=== PATIENT | female | born 1955 | race Caucasian/White ===

== ENCOUNTER 2018-04-22 12:22 | Emergency (ER) | payer OTHER, SELFPAY ==
[2018-04-22 12:24] VITALS: BP 162/91; PULSE 79; RESP 12; TEMP 35.7
--- NOTE | 2018-04-22 12:47 | RAD_ITS ---
STUDY: X-RAY - RIGHT HAND REASON FOR EXAM: Female, 62 years old. Pain at the level of the metacarpals following a fall. TECHNIQUE: 3 view(s) of the hand. COMPARISON: None. FINDINGS: Normal radiocarpal articulation. Normal distal radioulnar joint. Normal visualized carpal bones. Normal carpal articulations Normal carpometacarpal articulation of the thumb. Normal second through fifth carpometacarpal joints. Normal metacarpi. Normal metacarpophalangeal joint of the thumb. Normal interphalangeal joint of the thumb. Normal proximal and distal phalanges of the thumb. Normal metacarpophalangeal joints of the second through fifth fingers. Normal proximal and distal interphalangeal joints of the second through fifth fingers. Normal phalanges of the second through fifth fingers. Soft tissue swelling. RAD/Hand Min 3 Views IMPRESSION: Soft tissue swelling. Electronically Signed: Guanako Lopez MD at 13:18 EST Tel [phone], Service support ,
--- NOTE | 2018-04-22 12:47 | RAD_ITS ---
STUDY: X-RAY - LEFT FOOT CLINICAL: Female, 62 years old. Pain involving the great toe following a fall. TECHNIQUE: 3 view(s) of the foot. COMPARISON: None. FINDINGS: Normal talus, calcaneus, and tarsal bones. Normal visualized subtalar, talonavicular, calcaneocuboid, tarsal and tarsometatarsal articulations. Normal metatarsi. Normal metatarsophalangeal joint of the great toe. Normal tibial and fibular sesamoid bones. Normal interphalangeal joint of the great toe. Nondisplaced fracture at the base of the distal phalanx of the great toe. Normal second through fifth metatarsophalangeal joints. Normal interphalangeal joints and phalanges of the lesser toes. There is non-specific soft tissue swelling of the foot. RAD/Foot min 3 Views IMPRESSION: Nondisplaced fracture at the base of the distal phalanx of the great toe with overlying soft tissue swelling. Electronically Signed: Guanako Lopez MD at 13:19 EST Tel [phone], Service support ,
[2018-04-22] MEDS: Acetaminophen 500 MG Tablet 1000 MG PO (12:51)
--- NOTE | 2018-04-22 13:34 | ED.DCSUM_ITS ---
- ER Visit Summary Date of Service: 04/22/18 Chief Complaint: Left first toe pain, right hand pain History of Present Illness: The patient is a 62 F who states that she slipped on some ice and injured the left toe and right hand. This occurred a couple of hours ago. She took nothing for it. The pain is worse with movement of each of these areas. She was able to ambulate afterwards. She has no previous injuries or surgeries to either of these areas. Physical Examination: Vital signs are reviewed. Left foot exam reveals tenderness at the base of the nail of the left great toe. There is bleeding from under the nail but the nail bed is intact. The right hand is tender to pa lpation laterally. There is no swelling or ecchymosis Test Results: Right hand x-ray reveals soft tissue swelling. Left foot x-ray reveals a distal phalanx fracture Emergency Department Course and Treatment: She will be placed in a postop shoe. She only requested Tylenol for pain. She will ice and elevate. She will follow-up with her PCP Treatment Plan: [] Disposition: Discharge Impression: Right hand contusion, left first toe distal phalanx fracture This note was generated with [employer] dictation software. It may contain incorrect words, spelling, and punctuation that were not noted in review of the chart prior to signing ED Disposition - Plan for ED Patient: Chief Complaint: Lower Extremity Injury Referrals: Guero Cain MD [Primary Care Provider] -
--- NOTE | 2018-04-22 13:34 | ED.DEP ---
ED Disposition - Plan for ED Patient: Disposition: Home or Assisted Living Chief Complaint: Lower Extremity Injury Diagnosis: Phalanx fracture, foot Instructions: ED Fx Toe Closed Referrals: Guero Cain MD [Primary Care Provider] -
--- OUTSIDE RECORDS SUMMARY | 2018-07-25 03:55 | XMS RPT_ITS ---
:1955 Author Organization OHIP Care Team Providers Name Role Phone IGOR NÚÑEZ Attending Unavailable IGOR NÚÑEZ Referring Unavailable Francisco Tom Attending Unavailable Francisco Tom Referring Unavailable Dariel Granda Attending Unavailable Guero Cain Primary Care Unavailable PROBLEMS PROBLEMS DATE TYPE CONDITION / CODE ATTENDING STATUS SOURCE 04/05/2018 Active Encounter for Active [place] gynecological [facility] examination [place] (general) (routine) Repository without abnormal findings / Z01.419(ICD-10) 04/05/2018 Active Encounter for [facility] screening mammogram [facility] for malignant [place] neoplasm of breast Repository / Z12.31(ICD-10) 06/01/2017 Admitting Hyperlipidemia, Francisco Tom Active [facility] Diagnosis unspecified / System E78.5(ICD-10) Repository PROCEDURES PROCEDURES No Procedure Records FoundRESULTS RESULTS DISCHARGE INSTRUCTION Observed: 04/22/2018 Status: F Source: [place] 1:40 PM [facility] REPOSITORY [facility] Medical Records Department [address] [place] [address] Discharge Instruction 04/22/18 1334 MR#: [id number] Acct: [id number] Name: ABEL SILVER Rep #: [id number] : 1955 62 From: Dariel Granda MD PCP: Guero Cain MD Status: REG ER ED Disposition - Plan for ED Patient: Disposition: Home or Assisted Living Chief Complaint: Lower Extremity Injury Diagnosis: Phalanx fracture, foot Instructions: ED Fx Toe Closed Referrals: Guero Cain MD [Primary Care Provider] - What to do if you have Problems For any increased pain, shortness of breath, bleeding, nausea or vomiting, chest pain, or any unexpected problems, contact your Primary Care Provider. Call [facility] ([phone]) or report to the closest Emergency Room. Call 911 if necessary. 04/22/18 1340 <Electronically signed by Dariel Granda MD> Date Dariel Granda MD Cosigner Signature (If Indicated): Date CC: Guero Cain MD EMERGENCY DEPARTMENT Observed: 04/22/2018 Status: F Source: [place] SUMMARY 1:34 PM [facility] REPOSITORY [facility] Medical Records Department [address] [place] [address] Emergency Department Summary 04/22/18 1332 MR#: [id number] Acct: [id number] Name: ABEL SILVER Rep #: [id number] : 1955 62 From: Dariel Granda MD PCP: Guero Cain MD Status: REG ER - ER Visit Summary Date of Service: 04/22/18 Chief Complaint: Left first toe pain, right hand pain History of Present Illness: The patient is a 62 F who states that she slipped on some ice and injured the left toe and right hand. This occurred a couple of hours ago. She took nothing for it. The pain is worse with movement of each of these areas. She was able to ambulate afterwards. She has no previous injuries or surgeries to either of these areas. Physical Examination: Vital signs are reviewed. Left foot exam reveals tenderness at the base of the nail of the left great toe. There is bleeding from under the nail but the nail bed is intact. The right hand is tender to palpation laterally. There is no swelling or ecchymosis Test Results: Right hand x-ray reveals soft tissue swelling. Left foot x-ray reveals a distal phalanx fracture Emergency Department Course and Treatment: She will be placed in a postop shoe. She only requested Tylenol for pain. She will ice and elevate. She will follow-up with her PCP Treatment Plan: [] Disposition: Discharge Impression: Right hand contusion, left first toe distal phalanx fracture This note was generated with [employer] software. It may contain incorrect words, spelling, and punctuation that were not noted in review of the chart prior to signing ED Disposition - Plan for ED Patient: Chief Complaint: Lower Extremity Injury Referrals: Guero Cain MD [Primary Care Provider] - What to do if you have Problems For any increased pain, shortness of breath, bleeding, nausea or vomiting, chest pain, or any unexpected problems, contact your Primary Care Provider. Call [facility] ([phone]) or report to the closest Emergency Room. Call 911 if necessary. 04/22/18 1334 <Electronically signed by Dariel Granda MD> Date Dariel Granda MD Cosigner Signature (If Indicated): Date CC: Guero Cain MD HAND MIN 3 VIEWS Observed: 04/22/2018 Status: F Source: [place] 12:48 PM [facility] REPOSITORY [facility] Imaging Services [address] [place] [address] Hand Min 3 Views MR#: [id number] Acct: [id number] Name: ABEL SILVER Anaya Rep #: [id number] : 1955 F 62 From: Guanako Lopez MD PCP: Guero Cain MD Status: REG ER Study: Hand Min 3 Views Date of Exam: 04/22/18 Exam# [id number] Ordering Dr: Dariel Granda MD STUDY: X-RAY - RIGHT HAND REASON FOR EXAM: Female, 62 years old. Pain at the level of the metacarpals following a fall. TECHNIQUE: 3 view(s) of the hand. COMPARISON: None. FINDINGS: Normal radiocarpal articulation. Normal distal radioulnar joint. Normal visualized carpal bones. Normal carpal articulations Normal carpometacarpal articulation of the thumb. Normal second through fifth carpometacarpal joints. Normal metacarpi. Normal metacarpophalangeal joint of the thumb. Normal interphalangeal joint of the thumb. Normal proximal and distal phalanges of the thumb. Normal metacarpophalangeal joints of the second through fifth fingers. Normal proximal and distal interphalangeal joints of the second through fifth fingers. Normal phalanges of the second through fifth fingers. Soft tissue swelling. RAD/Hand Min 3 Views IMPRESSION: Soft tissue swelling. Electronically Signed: Guanako Lopez MD at 13:18 EST Tel [phone], Service support , CC: Guero Cain MD; Dariel Granda MD Dog Bather: Signed FOOT MIN 3 VIEWS Observed: 04/22/2018 Status: F Source: [place] 12:48 PM [facility] REPOSITORY [facility] Imaging Services [address] [place] [address] Foot min 3 Views MR#: [id number] Acct: [id number] Name: MELISSARAMYABEL B Rep #: [id number] : 1955 F 62 From: Guanako Lopez MD PCP: Guero Cain MD Status: REG ER Study: Foot min 3 Views Date of Exam: 04/22/18 Exam# [id number] Ordering Dr: Dariel Granda MD STUDY: X-RAY - LEFT FOOT CLINICAL: Female, 62 years old. Pain involving the great toe following a fall. TECHNIQUE: 3 view(s) of the foot. COMPARISON: None. FINDINGS: Normal talus, calcaneus, and tarsal bones. Normal visualized subtalar, talonavicular, calcaneocuboid, tarsal and tarsometatarsal articulations. Normal metatarsi. Normal metatarsophalangeal joint of the great toe. Normal tibial and fibular sesamoid bones. Normal interphalangeal joint of the great toe. Nondisplaced fracture at the base of the distal phalanx of the great toe. Normal second through fifth metatarsophalangeal joints. Normal interphalangeal joints and phalanges of the lesser toes. There is non-specific soft tissue swelling of the foot. RAD/Foot min 3 Views IMPRESSION: Nondisplaced fracture at the base of the distal phalanx of the great toe with overlying soft tissue swelling. Electronically Signed: Guanako Lopez MD at 13:19 EST Tel [phone], Service support , CC: Guero Cain MD; Dariel Granda MD Dog Bather: Signed CNOV Observed: 04/05/2018 Status: COMPLETED Source: [place] 9:00 AM [facility] REPOSITORY Office Visit (WOOB) JAQUI SILVERIS Anaya ([id number]) 1955 F Date Time Provider Department 04/05/18 9:00 AM IGOR NÚÑEZ During your visit today, we recorded the following information about you: Blood pressure Weight Height 158/92 75.3 kg 1.651 m Igor Núñez MD 04/05/2018 9:20 AM Signed Abel Julien Zoraida is a 62 year old who presents for her annual gynecologic exam without complaints. Postmenopausal: yes HRT use: No. Last Pap: 2014 normal HPV: 2014 negative History of abnormal pap: No Last mammogram: 2018 normal History of abnormal mammogram: No Obstetric History T4 L4 SAB2 TAB0 Ectopic0 Multiple0 Live Births0 PAST MEDICAL HISTORY Diagnosis Date - Generalized anxiety disorder Anxiety, Generalized - Hypertension - Missed - PMH - PAST MEDICAL HISTORY OF increased cholestrol - Rheumatoid arthritis(714.0) PAST SURGICAL HISTORY Procedure Laterality Date - CARPAL TUNNEL both hands - DELIVERY ONLY , low cervical - COLONOSCOP W/ OR W/O [facility] SPEC 05/29/2016 Colonoscopy - DANDC, DIAG AND/OR THERAPEUTIC Dilation AND curettage - LIGATE FALLOPIAN TUBE Tubal ligation - PAST SURGICAL HISTORY OF 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 No bloating, early satiety, indigestion, or increased flatulence. Bladder: No dysuria, gross hematuria, urinary frequency, urinary urgency, or incontinence Breast: No breast lumps, nipple d/c, overlying skin changes, redness or skin retraction Allergies and current medication updated:Yes EXAM: LMP 12/19/2009 GENERAL: pleasant, female in no apparent distress HEENT: Normocephalic, atraumatic, mucus membranes moist and no lesions NECK: Supple, full range of motion, no adenopathy and thyroid normal DERMATOLOGY: Normal, without lesions, non-icteric and non-hirsute BREAST: soft, non-tender, symmetric, no dominant mass, normal nipple-areolar complex, no lymphadenopathy and no nipple discharge CHEST: Normal inspiratory effort ABDOMEN: soft, non-tender and no masses PELVIC: external genitalia normal, normal Bartholin's glands, urethra, [place]'s glands, no vulvar lesions, no cervical lesions, good vaginal support, physiologic discharge present, normal appearing perineal body and perianal region BIMANUAL: uterus normal size, shape and consistency, no adnexal masses and non-tender RECTOVAGINAL: deferred. NEURO: alert and oriented x3,exam grossly non-focal EXTREMITIES: normal ASSESSMENT/PLAN: 1) Health maintenance: Pap/HPV up to date. Mammogram ordered Colon cancer screening: up to date with screening had flu vaccine 2) Follow up one year or sooner as needed MD Bev Danielle Ma 04/05/2018 9:20 AM Signed Would you like a gluing machine adjuster present for your visit today? No Bev Mae Ma Referring Provider: SELF [200] Allergies As of Date: 04/05/2018 Noted Allergy Reaction MORPHINE 05/29/2016 1 - Mental Status Change SULFASALAZINE 02/17/2011 5 - Intolerance Date Reviewed: 04/05/2018 Reviewed by: Igor Núñez - Fully Assessed Primary Visit Diagnosis:Encounter for gynecological examination (general) (routine) without abnormal findings [Z01.419] Other Visit Diagnosis:Encounter for screening mammogram for breast cancer [Z12.31] Order(s):[facility] SCREENING [[id number]] Order #: [id number] FUTURE Prescriptions as of 04/05/2018 Sig: VITAMIN C ORAL Take by mouth. IPRATROPIUM BROMIDE NASAL Use in the nose. ATORVASTATIN 20 MG TABLET Take 20 mg by mouth once naila* HYDROXYZINE HCL 25 MG TABLET Take 25 mg by mouth every 6 h* LORATADINE 10 MG TABLET Take 10 mg by mouth once naila* METHOTREXATE (PF) 20 MG/0.4 M* Inject subcutaneously. LOSARTAN 25 MG TABLET Take 50 mg by mouth once naila* * LEUCOVORIN CALCIUM 5 MG TABLET Take 10 mg by mouth once each* * PREDNISONE 10 MG TABLET Take 10 mg by mouth once naila* * HYDROXYCHLOROQUINE 200 MG TAB* Take 400 mg by mouth once kojo* * CHOLECALCIFEROL (VITAMIN D3) * Take 1,000 Units by mouth onc* * NAPROXEN ORAL Take by mouth as needed. Problem List As Of Date 04/05/2018 Noted Resolved Rheumatoid arthritis [M06.9] INVALID FOR* Disposition: Return in 1 year (on 04/05/2019) for Annual Exam. Follow-up and Disposition History Recorded Encounter Status:Closed by IGOR NÚÑEZ MD on 04/05/18 PROGRESS Observed: 04/05/2018 Status: COMPLETED Source: [place] 8:42 AM [facility] RE[facility]IT[facility] HNO ID: [id number] Author: Bev Mae Ma Service: (none) Author Type: (none) Type: Progress Notes Filed: 04/05/2018 9:20 AM Note Text: Would you like a gluing machine adjuster present for your visit today? No Bev Mae Ma PROGRESS Observed: 04/05/2018 Status: COMPLETED Source: [place] 8:34 AM [facility] REPOSITORY HNO ID: [id number] Author: Igor Núñez Service: (none) Author Type: Physician Type: Progress Notes Filed: 04/05/2018 9:20 AM Note Text: Abel Silver is a 62 year old who presents for her annual gynecologic exam without complaints. Postmenopausal: yes HRT use: No. Last Pap: 2014 normal HPV: 2014 negative History of abnormal pap: No Last mammogram: 2017 normal History of abnormal mammogram: No Obstetric History T4 L4 SAB2 TAB0 Ectopic0 Multiple0 Live Births0 PAST MEDICAL HISTORY Diagnosis Date - Generalized anxiety disorder Anxiety, Generalized - Hypertension - Missed - PMH - PAST MEDICAL HISTORY OF increased cholestrol - Rheumatoid arthritis(714.0) PAST SURGICAL HISTORY Procedure Laterality Date - CARPAL TUNNEL both hands - DELIVERY ONLY , low cervical - COLONOSCOP W/ OR W/O [facility] SPEC 05/29/2016 Colonoscopy - DANDC, DIAG AND/OR THERAPEUTIC Dilation AND curettage - LIGATE FALLOPIAN TUBE Tubal ligation - PAST SURGICAL HISTORY OF 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 No bloating, early satiety, indigestion, or increased flatulence. Bladder: No dysuria, gross hematuria, urinary frequency, urinary urgency, or incontinence Breast: No breast lumps, nipple d/c, overlying skin changes, redness or skin retraction Allergies and current medication updated:Yes EXAM: LMP 12/19/2009 GENERAL: pleasant, female in no apparent distress HEENT: Normocephalic, atraumatic, mucus membranes moist and no lesions NECK: Supple, full range of motion, no adenopathy and thyroid normal DERMATOLOGY: Normal, without lesions, non-icteric and non-hirsute BREAST: soft, non-tender, symmetric, no dominant mass, normal nipple-areolar complex, no lymphadenopathy and no nipple discharge CHEST: Normal inspiratory effort ABDOMEN: soft, non-tender and no masses PELVIC: external genitalia normal, normal Bartholin's glands, urethra, [place]'s glands, no vulvar lesions, no cervical lesions, good vaginal support, physiologic discharge present, normal appearing perineal body and perianal region BIMANUAL: uterus normal size, shape and consistency, no adnexal masses and non-tender RECTOVAGINAL: deferred. NEURO: alert and oriented x3,exam grossly non-focal EXTREMITIES: normal ASSESSMENT/PLAN: 1) Health maintenance: Pap/HPV up to date. Mammogram ordered Colon cancer screening: up to date with screening had flu vaccine 2) Follow up one year or sooner as needed Igor Núñez MD CNCO Observed: 04/05/2018 Status: COMPLETED Source: [place] 8:33 AM [facility] [place] REPOSITORY HNO ID: [id number] Author: Mammography Coordinator Service: (none) Author Type: Physician Type: Letter Filed: 04/08/2018 11:32 PM Note Text: April 05, 2018 PID: [id number] Abel B. Zoraida [address] [place] [address] Dear Ms. Torresramy, We are pleased to inform you that the results of your recent breast imaging exam on 04/05/2018 are normal. Your mammogram demonstrates that you have dense breast tissue, which could hide abnormalities. Dense breast tissue, in and of itself, is a relatively common condition. Therefore, this information is not provided to cause undue concern; rather, it is to raise your awareness and promote discussion with your health care provider regarding the presence of dense breast tissue in addition to other risk factors. Early detection of cancer is very important. We also understand recommendations regarding breast cancer screening are controversial. Please discuss with your primary care provider which strategy is best for you and whether a mammogram is right for you. Your imaging studies and report will be kept on file at [facility] as part of your permanent medical record and are available for your continuing care. Thank you for allowing us to help in meeting your health care needs. Sincerely, Dr. Quezada Interpreting Radiologist [facility] (Normal over 40) [facility] SCREENING Observed: 04/05/2018 Status: F Source: [place] 8:21 AM [facility] REPOSITORY * * *Final Report* * * DATE OF EXAM: Apr 05 2018 8:21AM WOW [id number] - [facility] SCREENING / PROCEDURE REASON: multiple diagnoses * * * * Physician Interpretation * * * * RESULT: #[id number] - [facility] SCREENING BILATERAL DIGITAL SCREENING MAMMOGRAM WITH CAD: 04/05/2018 HISTORY: Multiple Diagnoses /Screening Mammogram - patient reports NO symptoms /priors available for comparison. RESULT: TECHNIQUE: The study was acquired using full field digital technology and interpreted from soft copy. Current study was also evaluated with a Computer Aided Detection (CAD). Comparison is made to exams dated: 04/03/2017 mammogram, 03/27/2016 mammogram, and 03/18/2015 mammogram - [facility]. The tissue of both breasts is heterogeneously dense. This may lower the sensitivity of mammography. No significant masses, calcifications, or other findings are seen in either breast. There has been no significant interval change. IMPRESSION: There is no mammographic evidence of malignancy. A 1 year screening mammogram is recommended. Daniela Quezada M.D., mc/reji:04/05/2018 08:33:50 Lens Cleaner(s): RT Keerthi(Bharathi)(M), [facility] letter sent: Normal over 40 Mammogram BI-RADS: 1 Negative Multiple national specialty organizations have released breast cancer screening guidelines for women at average risk for developing breast cancer - guidelines that are based on both evidence and opinion, yet differ on when to start and how often to screen for breast cancer. With representation from Breast Imaging, Internal Medicine, Women's Health, Family Medicine, and Medical/Surgical Oncology, the [facility] has carefully reviewed the data and reached the following consensus: 1) All women should engage in shared decision-making with their providers to decide when to start and how often to screen; 2) All women should have the opportunity to start screening mammography at age 40; 3) For women ages 45-55, we recommend annual screening mammograms; 4) For women ages 55 and over, we support both the transition from an annual to a biennial interval if this aligns more with patient's values and preferences, or continuation with annual screening; 5) All women should discuss with their providers when to stop screening mammograms. Dog Bather: Reji Transcribe Date/Time: Apr 05 2018 8:06A Dictated by: DANIELA SARMIENTO MD This examination was interpreted and the report reviewed and electronically signed by: DANIELA SARMIENTO MD on Apr 05 2018 8:33AM EST [id number] PROCEDURE Observed: 04/05/2018 Status: COMPLETED Source: [place] 8:05 AM [facility] [place] REPOSITORY HNO ID: [id number] Author: Miriam () Libertad Frost Service: (none) Author Type: Drug Abuse Resistance Education Officer Type: Procedures Filed: 04/05/2018 8:22 AM Note Text: Radiology Service Progress Note PATIENT NAME: Abel Silver DATE OF SERVICE: April 05, 2018 TIME: 8:05 AM PATIENT IDENTITY VERIFICATION COMPLETED USING TWO (2) METHODS: Patient confirmed name verbally and Date of . PATIENT GENDER DATA: Female. status: : No status: NO. PATIENT RELEVANT IMPLANT DATA REVIEWED: Not Applicable RADIOLOGY DEPARTMENT: [facility] IV DATA: Not applicable SIGNED BY: RT Keerthi April 05, 2018 8:05 AM LIPID PANEL Collected: 06/01/2017 Status: F Source: [facility] 11:35 AM SYSTEM REPOSITORY TYPE CODE TESTS RESULT OUT OF RANGE REFERENCE UNITS LAB 3CHOL < 200 mg/dL Cholesterol Abnormal 202 LAB 3TRIG <150 mg/dL Abnormal Triglyceride 158 LAB HDLC 40-60 mg/dL Normal HDL Cholesterol 57 LAB LDL4 <100 mg/dL Low Density Abnormal Lipoprotein 113 LAB CHLHD Normal Chol/HDL 4 Result Comment: Ref Range: < 3 Low Risk for CHD 3-6 Mod Risk for CHD > 6 High Risk for CHD Performed By: #### LIPD2, TSH4 #### [address] [address] THYROID STIM. Collected: 06/01/2017 Status: F Source: [facility] HORMONE 11:35 AM SYSTEM REPOSITORY TYPE CODE TESTS RESULT OUT OF RANGE REFERENCE UNITS LAB TSH4 0.465-4.680 uU/mL Normal Thyroid Stim. 0.896 Hormone Performed By: #### LIPD2, TSH4 #### [address] [place] [address] MICROALBUMIN/CREAT RATIO Collected: Status: F Source: [facility] 06/01/2017 11:35 AM SYSTEM REPOSITORY TYPE CODE TESTS RESULT OUT OF RANGE REFERENCE UNITS LAB MACR3 No Range mg/dL Normal Creatinine, 17.0 Ur Random LAB ALBU3 No Range mg/L Normal Microalbumin, <6.0 Ur Result Comment: Microalbumin concentrations <30 are considered normal, 30-300 are considered microalbuminuria (or risk of diabetic nephropathy), and >300 are considered clinical albuminuria (clinical nephropathy). Diabetes Care,27, Supplement 1, L56-71, 2003 LAB RATM6 0.0-29.9 mg/g Microalb/Creat Ratio High <35.3 Performed By: #### MACR1 #### [address] [place] [address] ALLERGIES ALLERGIES DATE TYPE / NAME / CODE REACTION SEVERITY SOURCE CODE 04/22/2018 Drug Sulfa (Sulfonamide Rash Unknown [place] Allergy/41 Antibiotics)/[id number] Formerly [facility] [id number]([facility](RXNORM) [facility]) Repository 04/22/2018 Drug morphine/[id number] Other Unknown [place] Allergy/41 (RXNORM) Formerly [facility] [id number]([facility]) Repository 05/29/2016 DRUG MORPHINE Mental Chg Med [address] [id number]([facility]) Repository 02/17/2011 DRUG SULFASALAZINE INTOLERANCE [address] Main [id number]([facility]) Repository ENCOUNTERS ENCOUNTERS ADMIT/DISCHARGE ACCOUNT NUMBER ADMITTING ENCOUNTER LOCATION SOURCE CLASS 04/22/2018/04/22/20 [id number] Emergency [place] [address] [place] [address] ding:ED Repository 04/05/2018/04/08/20 [id number] Ambulatory [address] Repository 04/05/2018/04/05/20 [id number] Ambulatory [address] Repository 06/01/2017 [id number] Ambulatory [facility] System Repository PAYERS PAYERS ENCOUNTER GUARANTOR PAYER SUBSCRIBER SOURCE 04/22/2018 ABEL B Primary [address]MAN [id number] Insurance:[facility] BRITTANIEB: Community [facility] [id number] [id number] [place], [place] Number: Repository [id number]: [phone] [phone] () Date:[id number] [address]AF: 04/22/2018 Secondary NOT GIVENSARAH Stout Insurance:SELF PAY [facility] Number: Effective Repository Date:2018-04-22 06/01/[address] [facility] ZoraidaDOB: Insurance:[place] ZoraidaAnaya: System [id number] [facility] [id number] Repository [facility] Number: Effective [place], [place] Date: [address]Wti: ()
== END 2018-04-22 14:22 | disposition home or self-care (01) ==
PROVIDERS: Emergency Provider Emergency Medicine; Family Provider Family Medicine; PCP Family Medicine
DX: S92.422A Displaced fracture of distal phalanx of left great toe, initial encounter for closed fracture (principal); S60.221A Contusion of right hand, initial encounter; W00.0XXA Fall on same level due to ice and snow, initial encounter; Y93.9 Activity, unspecified; Y92.9 Unspecified place or not applicable; Y99.9 Unspecified external cause status; Z72.0 Tobacco use; Z79.02 Long term (current) use of antithrombotics/antiplatelets; Z79.82 Long term (current) use of aspirin; Z79.899 Other long term (current) drug therapy
CPT/HCPCS: 73130; 73630; 99283

== ENCOUNTER → 2019-04-24 08:54 | Outpatient (CLI) | payer OTHER, SELFPAY ==
[2019-04-24 10:16] LABS: Absolute Lymphocyte Count 1.59 X10^3/uL (0.83-4.51); Absolute Neutrophil Count 4.3 X10^3/uL (2.0-7.7); Basophil# 0.02 X10^3/uL; Basophil% 0.3 % (0-1); Eosinophil# 0.09 X10^3/uL; Eosinophils% 1.4 % (0-5); Hemoglobin 14.2 g/dL (12.0-15.0); Lymphocyte # 1.59 X10^3/ul (4.0); Lymphocyte % 24.3 % (19-41); Mean Corp Hgb Conc 35.5 g/dL (32-36); Mean Platelet Vol. 10.4 fl (6.2-12.0); Monocyte# 0.54 X10^3/uL; Monocyte% 8.3 % (0-10); NRBC Flagged by Analyzer 0 % (0-5); Neutrophil # 4.28 X10^3/uL (2.7-7.7); Neutrophil % 65.4 % (47-70); Platelet Count 308 K/mm3 (150-450); RBC Distribution Width CV 11.9 % (11.6-14.6); RBC Distribution Width SD 40.8 fl (35.1-43.9); White Blood Count 6.5 K/mm3 (4.4-11.0)
[2019-04-24 10:47] LABS: Vitamin B12 439 pg/mL (211-911)
[2019-04-24 11:57] LABS: ALB/GLOB Ratio 1.3 RATIO (0.9-2.4); AST(SGOT) 52 U/L (15-37); Alanine Aminotransfer ALT/SGPT 63 U/L (13-56); Alkaline Phosphatase 116 U/L (45-117); Anion Gap 7 (5-15); BUN 16 mg/dL (7-18); BUN/Creat Ratio 20.4 RATIO (10-20); Calcium,Total 9.3 mg/dL (8.5-10.1); Chloride 108 mmol/L (98-107); Cholesterol 206 mg/dL (200); Creatinine, Serum 0.79 mg/dL (0.55-1.02); EST Glomerular Filtration Rate 79 mL/min (>60); Est Glom Filt Rate - Afr Amer 95 mL/min (>60); Glucose 99 mg/dL (74-106); High Density Lipoprotein 66 mg/dL; Sodium Level 140 mmol/L (136-145); Thyroid Stim Hormone (TSH) 1.16 uIU/mL (0.358-3.74); Triglycerides 189 mg/dL; Very Low Density Lipoprotein 38 mg/dL (5-40)
[2019-04-24 13:00] LABS: Microalbumin,Random Urine 10.5 mg/L (NO RANGE EST.); Microalbumin:Creatinine Ratio 14.3 mg/g CRE (<30 mg/g CRE)
== END ==
PROVIDERS: Family Provider Family Medicine; PCP Family Medicine; Referring Provider Family Medicine; Visit Provider Family Medicine
DX: Z00.00 Encounter for general adult medical examination without abnormal findings (principal); M06.9 Rheumatoid arthritis, unspecified; R20.2 Paresthesia of skin
CPT/HCPCS: 36415; 80053; 80061; 82043; 82570; 82607; 82746; 84443; 85025

== ENCOUNTER → 2020-06-18 10:38 | Outpatient (CLI) | payer OTHER, SELFPAY ==
[2020-06-18 12:19] LABS: Absolute Lymphocyte Count 2.07 X10^3/uL (0.83-4.51); Absolute Neutrophil Count 3.5 X10^3/uL (2.0-7.7); Basophil# 0.04 X10^3/uL; Basophil% 0.6 % (0-1); Eosinophil# 0.12 X10^3/uL; Eosinophils% 1.9 % (0-5); Hematocrit 39.8 % (37-47); Hemoglobin 13.9 g/dL (12.0-15.0); Lymphocyte # 2.07 X10^3/ul (4.0); Lymphocyte % 32.4 % (19-41); Mean Corp Hgb Conc 34.9 g/dL (32-36); Mean Corpuscular Hgb 32.3 pg (27.0-32.0); Mean Corpuscular Volume 92.6 fL (81-99); Mean Platelet Vol. 10.4 fl (6.2-12.0); Monocyte% 9.4 % (0-10); NRBC Flagged by Analyzer 0 % (0-5); Neutrophil # 3.54 X10^3/uL (2.7-7.7); Neutrophil % 55.5 % (47-70); Platelet Count 345 K/mm3 (150-450); RBC Distribution Width CV 11.3 % (11.6-14.6); RBC Distribution Width SD 38.4 fl (35.1-43.9); White Blood Count 6.4 K/mm3 (4.4-11.0)
[2020-06-18 12:23] LABS: Erythrocyte Sedimentation Rate 12 mm/hr (0-30)
[2020-06-18 14:20] LABS: AST(SGOT) 27 U/L (15-37); Alanine Aminotransfer ALT/SGPT 35 U/L (13-56); Albumin, Serum 3.8 g/dL (3.2-5.0); Alkaline Phosphatase 105 U/L (45-117); Bilirubin, Direct 0.13 mg/dL (0.00-0.30); CRP < 2.90 mg/L (0.0-3.0); Creatinine, Serum 0.93 mg/dL (0.55-1.02); EST Glomerular Filtration Rate 64 mL/min (>60); Est Glom Filt Rate - Afr Amer 78 mL/min (>60); Globulin 3.2 g/dL (2.2-4.2)
== END ==
PROVIDERS: PCP Family Medicine; Referring Provider Family Medicine; Visit Provider Internal Medicine Rheumatology
DX: M05.79 Rheumatoid arthritis with rheumatoid factor of multiple sites without organ or systems involvement (principal); Z79.899 Other long term (current) drug therapy
CPT/HCPCS: 36415; 80076; 82565; 85025; 85652; 86140

== ENCOUNTER → 2020-08-19 13:56 | Outpatient (CLI) | payer OTHER, SELFPAY ==
--- NOTE | 2020-08-19 14:15 | RAD_ITS ---
STUDY: X-RAY - LEFT KNEE REASON FOR EXAM: Female, 64 years old. Knee pain. TECHNIQUE: 4 view(s) of the knee. COMPARISON: None. FINDINGS: Mild osteopenia. Normal visualized distal femur. Normal visualized proximal tibia and fibula. Normal proximal tibiofibular articulation. Normal medial femorotibial compartment. Normal lateral femorotibial compartment. Normal patellofemoral articulation. The soft tissue structures are unremarkable. RAD/Knee 4 or More Views IMPRESSION: Osteopenia with no other abnormality of the left knee. Electronically Signed: Jeff Horn MD at 14:43 EDT , Service support ,
== END ==
PROVIDERS: PCP Family Medicine; Referring Provider Nurse Practitioner Family; Visit Provider Nurse Practitioner Family
DX: M25.562 Pain in left knee (principal)
CPT/HCPCS: 73564

== ENCOUNTER 2020-08-27 08:27 | Outpatient (RCR) | payer OTHER, SELFPAY ==
--- NOTE | 2020-08-27 09:14 | HP.PTEVAL_ITS ---
Patient's Visit Information ABEL SILVER is a 64 year old F referred to Physical Therapy by KEIKO PratherC with a diagnosis of L knee pain. Date of Evaluation: 08/27/20 Physical Therapist: Guero Devlin DPT, OCS, CSCS - Visit Plan Frequency: 1-2x /Week Duration: 4-6 Weeks Plan: 1-2x/week as needed for progression of walking program, quad stretches adn hip and knee strength ex via HEP. Shown quad stretch adn educated on walking in brace for HEP today painfree. Next session, hip and knee strength with band pt can do at home and check foot biomechanics, shoes. Progress walking program if tolerating well. - Subjective I started walking 3-5 miles per day in May. 3 weeks ago L knee started hurting especially walking down hill. Got a little brace and it helps. Stopped walking when it started hurting. no pain meds, takes naproxen if needed a while back. Overall 85% better with rest adn brace. Just feels a little crampy. No pain in a week. Sleep is OK, never kept her up. was only hurting with walking. Wants to get back to walking. Lost 18# walking and wants to get back to walking. Housework OK. Stairs are no problem, just feels worse than it used to. Has RA. Activities are pretty normal. - Pain L knee pain. Pain Intensity (Out of 10): N/A Pain Intensity Range: 0 - Objective L knee lateral joint line mild tender . L quad 2 inches less flexible in prone angel R. Otherwise unremarkable eval. Full 0-140 aROM B knees, symmetrical hip and ankle ROM outside of quad assymmetry in flexibility. Strength 4+/5 quad, HS and hip flexion without pain B. Hip abd and ext 4- painfree B. reflexes 2/3 patella and achilles. Sensation LE WNL to gross light touch. - bounce home. - varus and vagus. - ant drawer. - patellar grind. Godd knee cap mobility with pain or tenderness. - Goals Goal 1:: Walk 3 miles without pain consistently Goal Time Frame: 4-6 Weeks Goal 2:: I approp HEP to minimize future problems Goal Time Frame: 4-6 Weeks Goal 3:: Pt feel 100% back to normal Goal Time Frame: 4-6 Weeks - Rehabilitation Potential Physical Therapy Diagnosis: L knee pain, possibly mild degeneration Rehabilitation Potential: Good - Anticipated Interventions Patient/Client Instruction: Educate patient on: Condition, Plan of Care For the Purpose of:: To decrease pain, To improve ability of physical actions for home/community/work/leisure Therapeutic Exercise to Include: Strength training, Flexibilty training For the Purpose of:: To decrease pain, To improve gait and locomotor functions Thank you for the opportunity to evaluate your patient. For Medicare and Medicare HMO plans, please review the plan of care and approve it. It will need to be FAXED BACK to us at [phone] for Medicare purposes. For Medicare only, by signing this I certify the plan of care. Please let me know if there are questions or concerns regarding this plan of care. Physician Signature: Da te:
--- NOTE | 2020-10-14 17:29 | HP.PT.NRP ---
ABEL SILVER was seen in my office for initial evaluation on 08/27/20. The following Plan of Care was established for this patient: Initial Frequency: 1-2x /Week Initial Duration: 4-6 Weeks Patient/Client Instruction: Educate patient on: Condition, Plan of Care For the Purpose of:: To decrease pain, To improve ability of physical actions for home/community/work/leisure Therapeutic Exercise to Include: Strength training, Flexibilty training For the Purpose of:: To decrease pain, To improve gait and locomotor functions This patient was last seen in our office 08/27/20. Pertinent comments regarding their Physical therapy will appear below: Pt seen one visit adn POC was established. She did not schedule any further visits. at this point, it has been over 6 weeks adn I will discontinue due to nonattendance. At this point I will be discontinuing this patient from physical therapy. I would be happy to see this patient again in the future if found appropriate by the physician. Thank you! Guero Devlin, DPT, OCS, CSCS
== END 2020-08-27 19:00 | disposition home or self-care (01) ==
LOC: PT 08:27
PROVIDERS: PCP Family Medicine; Referring Provider Nurse Practitioner Family; Visit Provider Nurse Practitioner Family
DX: M25.562 Pain in left knee (principal)
CPT/HCPCS: 97110; 97161

== ENCOUNTER 2021-06-06 00:16 | Observation (INO) | payer OTHER, SELFPAY ==
[2021-06-06] VITALS (9 sets, daily range): BP systolic 147–191; BP diastolic 67–98; PULSE 95–105; RESP 16–18; TEMP 36.2–36.8; O2SAT 95–98; BMI 27.8; BMI 26.9
--- NOTE | 2021-06-06 00:45 | EX.ED.DYSGE1 ---
HPI History of Present Illness Chief Complaint: Allergic Reaction Informant: patient Onset/Context/Timing Onset: Today Context: Gradual Onset Timing: Continuous Quality: Swollen Location: Throat Worsened by: Nothing Relieved by: Claritin Narrative Narrative: Patient presents with facial and neck swelling that began tonight. Patient states it is gradually gotten worse. Patient states she feels like there is some swelling in her throat and sublingual area. Patient states she took a Claritin as well as 10 mg of prednisone prior to arrival. Patient states it seems to be getting better. Patient denies any fevers or chills. Patient denies any shortness of breath. Patient is able to swallow. Patient states she feels like she has some drainage in the back of her throat. Patient denies any nausea or vomiting. [facility] Medical History (Updated 06/06/21 @ 03:[address] Melania Sanchez MD) Former tobacco use HLD (hyperlipidemia) HTN (hypertension) Overweight Rheumatoid arthritis Home Medications adalimumab [Humira(CF) Pen] 40 mg SUBCUT QWEEK 06/06/21 [History Last Taken Unknown] atorvastatin 20 mg PO DAILY 06/06/21 [History Last Taken Unknown] indapamide 12.5 mg PO DAILY 06/06/21 [History Last Taken Unknown] losartan 50 mg PO DAILY 06/06/21 [History Last Taken Unknown] prednisone 5 mg PO DAILY 06/06/21 [History Last Taken Unknown] Allergy/AdvReac Type Severity Reaction Status Date / Time Sulfa (Sulfonamide Allergy Rash Verified 04/22/18 12:23 Antibiotics) morphine AdvReac Other Verified 04/22/18 12:23 Family History (Updated 06/06/21 @ 03:[address] Melania Sanchez MD) Mother Heart disease Hypertension HLD (hyperlipidemia) Father Myasthenia gravis Surgical History (Updated 06/06/21 @ 03:[address] Melania Sanchez MD) H/O section History of bilateral carpal tunnel release Hx of elbow surgery Surgical History no surgical history no surgical history Social History (Updated 06/06/21 @ 03:[address] Melania Sanchez MD) household members: spouse Smoking Status: Former smoker how long ago did patient quit smoking: Quit 29 years ago, smoked 3-4 cig/daily since age 23 until quit. alcohol intake: current alcohol intake frequency: 0-2 drinks per day Alcohol type: wine substance use type: does not use ROS ROS ED Constitutional Constitutional ED: Denies chills or fever(s) Eyes Eyes: Denies blurry vision or change in vision ENT ENT ED: Denies rhinorrhea or sore throat Cardiovascular Cardiovascular: Denies chest pain or palpitations Respiratory/Chest Respiratory/Chest: Denies cough or dyspnea Gastrointestinal Gastrointestinal: Denies nausea or vomiting Genitourinary Genitourinary ED: Denies dysuria or hematuria Musculoskeletal Musculoskeletal: Denies back pain or neck pain Integumentary Denies abscess or rash Neurologic Neurologic: Denies headache(s) or weakness Allergic/Immunologic Allergic/Immunologic ED: Reports mouth swelling; Denies urticaria EXAM Physical Exam Const Vital Signs: 06/06/21 00:17 06/06/21 00:19 Temperature 97.1 F L 97.1 F L Temperature Source Temporal Temporal Pulse Rate 98 98 Respiratory Rate 18 18 Blood Pressure 191/96 H 191/96 H Blood Pressure Mean 127 127 Pulse Ox 98 98 Oxygen Delivery Method Room Air Room Air Positive well nourished and well developed General Appearance ED: well developed HEENT Reports moist mucous membranes Neck supple and no JVD Resp normal respiratory effort and clear to auscultation bilaterally Cardio regular rate, regular rhythm and no murmurs GI normal to inspection, nondistended, normoactive bowel sounds and non-tender Palpation: soft Extremity normal to inspection General Extremety ED: Negative for edema or tenderness General Extremity: Negative for edema Neuro oriented x3, CN's II-XII intact bilaterally and no sensory deficits noted Sensorium / Orientation: alert Motor Exam: strength 5/5 throughout Psych mental status grossly normal Skin no rashes or lesions noted MDM MDM MDM Narrative Medical decision making narrative: Patient was given a dose of Solu-Medrol and Benadryl here. Because of the patient's concern for swelling in the sublingual area, CTA of the soft tissue neck was ordered. There is thickened area epiglottic folds but the epiglottis itself is unremarkable. There is also some bilateral submandibular edema. The airway is patent. This was interpreted by the radiologist and reviewed by myself. CBC shows leukocytosis of 14.7. Basic metabolic profile was essentially within normal limits. Patient was given a dose of Unasyn here. On reevaluation patient states she still feels some swelling in her throat. Patient is talking in full sentences without difficulty breathing. There is no hoarseness to her voice. Patient is resting comfortably. Patient is able to swallow her secretions without difficulty. Case was discussed with the hospitalist. She will admit the patient to her service. Patient understood and was agreeable with the plan. All questions were answered. Lab Data Attestation: I reviewed the patient's lab results. Labs: Laboratory Results - last 24 hr 06/06/21 06/06/21 01:10 01:10 WBC 14.7 H RBC 4.17 L Hgb 13.2 Hct 38.4 MCV 92.1 MCH 31.7 MCHC 34.4 RDW Std Deviation 39.2 RDW Coeff of Michael 11.4 L Plt Count 335 MPV 9.4 Immature Gran % (Auto) 0.500 Neut % (Auto) 80.2 H Lymph % (Auto) 11.6 L Burt % (Auto) 2.8 Eos % (Auto) 4.8 Baso % (Auto) 0.1 Absolute Neuts (auto) 11.8 H Absolute Lymphs (auto) 1.70 Nucleated RBC % 0 Sodium 140 Potassium 4.0 Chloride 108 H Carbon Dioxide 25.0 Anion Gap 7 BUN 15 Creatinine 0.73 Estim Creat Clear Calc 67.23 Est GFR (MDRD) Af Amer 104 Est GFR (MDRD) Non-Af 86 BUN/Creatinine Ratio 20.7 H Glucose 103 Calcium 8.5 Radiography Diagnostic Testing: Clinical Impression(s) from Imaging Studies Soft Tissue Neck CT 06/06/21 00:56 IMPRESSION: Thickened aryepiglottic folds, with fairly unremarkable epiglottis, suggesting atypical presentation of supraglottitis. There is also mild bilateral submandibular edema. Airway is patent. Clinical correlation and close follow-up recommended. Individualized dose optimization techniques were used for this CT. at 0228 Reported and signed by: Joe Mane MD Electronically Signed: Joe Mane MD at 2:26 EST , ADDENDUM: 06/06/21 0240 IMPRESSION: Thickened aryepiglottic folds, with fairly unremarkable epiglottis, suggesting atypical presentation of supraglottitis. There is also mild bilateral submandibular edema. Airway is patent. Clinical correlation and close follow-up recommended. Individualized dose optimization techniques were used for this CT. at 0228 Reported and signed by: Joe Mane MD N.B. : The above Results were Read Back by Joe Mane MD to Dr. Eveline MD, and understanding confirmed on 06/06/2021 02:34:05 (ET). Electronically Signed: Joe Mane MD at 2:26 EST , Treatment and Re-Evaluation Vital Sign Attestation:: Vital signs were reviewed prior to admission. They are stable. Discharge Plan Dx/Rx/DC Orders Clinical Impression: Adult supraglottitis Disposition Disposition: Acute Care Hospital [facility]
--- NOTE | 2021-06-06 00:56 | CT_ITS ---
We are attempting to reach an attending provider to discuss findings. An addendum with communication details will be sent when the communication is complete. HISTORY: Neck swelling, submandibular swelling since 06/05, burning tongue feeling. Hx hypertension. EXAMINATION: CT Soft Tissue Neck W/ Contrast Injection TECHNIQUE: Helically acquired images were obtained of the neck following IV contrast. A radiation dose optimization technique was used for this scan. IV Contrast dosage and agent: 75mL [id number] COMPARISON: None FINDINGS: Mild bilateral submandibular soft tissue swelling and edema with no discrete mass or organized abscess collection. No bulky adenopathy demonstrated. Symmetric bilateral submandibular and parotid glands. Airways patent. Normal epiglottis but there is symmetric thickening of bilateral aryepiglottic folds. No discrete laryngeal mass. Unremarkable proximal esophagus. Imaged upper lungs are clear. No discrete thyroid lesion. Mild atherosclerotic calcifications with no major vessel occlusion or high-grade arterial stenosis. Intact and unremarkable osseous structures. Paranasal sinuses are clear. Mastoid air cells are well pneumatized. Unremarkable bilateral orbits and globes. CT/Soft Tissue Neck WITH Contrast IMPRESSION: Thickened aryepiglottic folds, with fairly unremarkable epiglottis, suggesting atypical presentation of supraglottitis. There is also mild bilateral submandibular edema. Airway is patent. Clinical correlation and close follow-up recommended. Individualized dose optimization techniques were used for this CT. at 0228 Reported and signed by: Joe Mane MD Electronically Signed: Joe Mane MD at 2:26 EST ,
[2021-06-06] MEDS: DiphenhydrAMINE 50 MG/ML Syringe 25 MG IV (01:12)
[2021-06-06] MEDS: MethylPREDNISolone 125 MG/2 ML Vial 60 MG IV (01:13)
[2021-06-06 01:24] LABS: Absolute Neutrophil Count 11.8 X10^3/uL (2.0-7.7); Basophil# 0.02 X10^3/uL; Basophil% 0.1 % (0-1); Eosinophils% 4.8 % (0-5); Hematocrit 38.4 % (37-47); Hemoglobin 13.2 g/dL (12.0-15.0); Lymphocyte % 11.6 % (19-41); Mean Corp Hgb Conc 34.4 g/dL (32-36); Mean Corpuscular Hgb 31.7 pg (27.0-32.0); Mean Corpuscular Volume 92.1 fL (81-99); Mean Platelet Vol. 9.4 fl (6.2-12.0); Monocyte# 0.41 X10^3/uL; Monocyte% 2.8 % (0-10); NRBC Flagged by Analyzer 0 % (0-5); Neutrophil # 11.81 X10^3/uL (2.7-7.7); Neutrophil % 80.2 % (47-70); Platelet Count 335 K/mm3 (150-450); RBC Distribution Width CV 11.4 % (11.6-14.6); RBC Distribution Width SD 39.2 fl (35.1-43.9); Red Blood Count 4.17 M/mm3 (4.2-5.4); White Blood Count 14.7 K/mm3 (4.4-11.0)
[2021-06-06 01:43] LABS: Anion Gap 7 (5-15); BUN 15 mg/dL (7-18); BUN/Creat Ratio 20.7 RATIO (10-20); Calcium,Total 8.5 mg/dL (8.5-10.1); Chloride 108 mmol/L (98-107); Creatinine, Serum 0.73 mg/dL (0.55-1.02); EST Glomerular Filtration Rate 86 mL/min (>60); Est Glom Filt Rate - Afr Amer 104 mL/min (>60); Estimated Creatinine Clearance 67.23 ml/min; Glucose 103 mg/dL (74-106); Sodium Level 140 mmol/L (136-145)
--- NOTE | 2021-06-06 02:39 | HP.PCM.HOS_ITS ---
HPI - General General Date of Admission: 06/06/21 Date of Service: 06/06/21 Chief Complaint: Swollen throat, difficulty swallowing. HPI Narrative The patient is a 65 y/o F w/ PMHx: HTN, HLD, Rheumatoid arthritis, Overweight who presents to the [facility] ED on 06/06/21 with history of onset throat swelling, difficulty swallowing as well as neck swelling with self administration of 10 mg prednisone and claritin with some improvement but noted ongoing sensation of swelling and drainage down the back of her throat. She notes she has been feelin g well with no recent fever, chills or URI type symptoms until the prior evening. She reports cervical lymphadenopathy and tenderness to palpation. Her has felt well and denies any recent URI type illnesses/symptoms. Work-up in the ED included T 97.1, heart rate 98, BP 191/96, respiratory rate 18, 98% on room air, CBC with WC 14.7, hemoglobin 13.2, platelet 335 with left shift, BMP unremarkable, CT soft tissue neck with a thickened area epiglottis folds with fairly unremarkable epiglottis suggestive of atypical presentation of supraglottitis with mild bilateral submandibular edema with airway patent. In the ED patient ministered Solu-Medrol 60 mg IV x1, Benadryl 25 mg IV x1 initiall y given secondary to concern for allergic reaction initially as well as Unasyn 3 g IV x1. [facility] Medical History (Updated 06/06/21 @ 03:[address] Melania Sanchez MD) Former tobacco use HLD (hyperlipidemia) HTN (hypertension) Overweight Rheumatoid arthritis Home Medications adalimumab [Humira(CF) Pen] 40 mg SUBCUT QWEEK 06/06/21 [History Last Taken Unknown] atorvastatin 20 mg PO DAILY 06/06/21 [History Last Taken Unknown] indapamide 12.5 mg PO DAILY 06/06/21 [History Last Taken Unknown] losartan 50 mg PO DAILY 06/06/21 [History Last Taken Unknown] prednisone 5 mg PO DAILY 06/06/21 [History Last Taken Unknown] Allergy/AdvReac Type Severity Reaction Status Date / Time Sulfa (Sulfonamide Allergy Rash Verified 04/22/18 12:23 Antibiotics) morphine AdvReac Other Verified 04/22/18 12:23 Family History (Updated 06/06/21 @ 03:[address] Melania Sanchez MD) Mother Heart disease Hypertension HLD (hyperlipidemia) Father Myasthenia gravis Surgical History (Updated 06/06/21 @ 03:[address] Melania Sanchez MD) H/O section History of bilateral carpal tunnel release Hx of elbow surgery Surgical History no surgical history Social History (Updated 06/06/21 @ 03:[address] Melania Sanchez MD) household members: spouse Smoking Status: Former smoker how long ago did patient quit smoking: Quit 29 years ago, smoked 3-4 cig/daily since age 23 until quit. alcohol intake: current alcohol intake frequency: 0-2 drinks per day Alcohol type: wine substance use type: does not use ROS ROS Narrative Admission Review of Systems: CONSTITUTIONAL: No weight loss, fever, chills, + weakness or fatigue. HEENT: + Sore throat, cervical LAD/TTP, swollen neck/dysphagia. Eyes: No visual loss, blurred vision, double vision or yellow sclerae. Ears, Nose, Throat: No hearing loss, sneezing, congestion. SKIN: No rash or itching, lesions, wounds. CARDIOVASCULAR: No chest pain, chest pressure or chest discomfort, palpitations, edema, orthopnea, syncopal events. RESPIRATORY: No shortness of breath, cough or sputum, wheezing, hemoptysis. GASTROINTESTINAL: No anorexia, nausea, vomiting or diarrhea, abdominal pain, melena, BRBPR. GENITOURINARY: No dysuria, frequency, urgency or retention. NEUROLOGICAL: No headache, dizziness, syncope, paralysis, ataxia, numbness or tingling in the extremities, focal weakness, change in bowel or bladder control, seizure. MUSCULOSKELETAL: + muscle, back pain, joint pain or stiffness. HEMATOLOGIC: No anemia, bleeding or bruising. LYMPHATICS: No enlarged nodes. No history of splenectomy. PSYCHIATRIC: No history of depression or anxiety. ENDOCRINOLOGIC: No reports of sweating, cold or heat intolerance. No polyuria or polydipsia. ALLERGIES: No history of asthma, hives, eczema or rhinitis. Vital Signs Vital Signs Vital Signs: 06/06/21 00:17 06/06/21 00:19 Temperature 97.1 F L 97.1 F L Temperature Source Temporal Temporal Pulse Rate 98 98 Respiratory Rate 18 18 Blood Pressure 191/96 H 191/96 H Blood Pressure Mean 127 127 Pulse Ox 98 98 Oxygen Delivery Method Room Air Room Air Weight Weight: 162 lb 4.163 oz Body Mass Index (BMI) 27.8 Physical Exam Narrative Physical Examination: General: Awake, alert, oriented x 3 and cooperative, seated upright in the ED bed, fatigued, no acute distress, notes some improvement. Skin: Normal color, normal turgor, no icterus, no cyanosis. HEENT: AT/NC, EOMI, PERRLA, MMM, mild bilateral lower face swelling, no carotid bruits or JVD noted, notable cervical lymphadenopathy with tenderness palpation, speaking in full sentences with patent airway, mild erythematous posterior oropharynx. Lungs: Diminished, greater bases, appropriate effort, no rales, ronchi or wheezing. Heart: Mildly tachycardic with regular rhythm; no gallop, rub audible. Abdomen: Soft, overweight, NTTP, ND, normal BS, no HSM. Extremities: No cyanosis, clubbing, or edema. Neurological: Patient awake, alert, oriented as noted, cognitive function intact; pupils equally reactive to light and accommodation, cranial nerves II- XII grossly normal, moving all 4 extremities, no focal deficits, strength mildly global decrease secondary to acute presentation. Psychiatric: Affect appears fatigued, no acute evidence of depressive or anxiety feelings. Results Lab / Micro Data Result Diagrams: 06/06/21 01:10 06/06/21 01:10 Labs: Laboratory Results - last 24 hr 06/06/21 01:10: WBC 14.7 H, RBC 4.17 L, Hgb 13.2, Hct 38.4, MCV 92.1, MCH 31.7, MCHC 34.4, RDW Std Deviation 39.2, RDW Coeff of Michael 11.4 L, Plt Count 335, MPV 9.4, Immature Gran % (Auto) 0.500, Neut % (Auto) 80.2 H, Lymph % (Auto) 11.6 L, [place] % (Auto) 2.8, Eos % (Auto) 4.8, Baso % (Auto) 0.1, Absolute Neuts (auto) 11.8 H, Absolute Lymphs (auto) 1.70, Nucleated RBC % 0 06/06/21 01:10: Sodium 140, Potassium 4.0, Chloride 108 H, Carbon Dioxide 25.0, Anion Gap 7, BUN 15, Creatinine 0.73, Estim Creat Clear Calc 67.23, Est GFR (MDRD) Af Amer 104, Est GFR (MDRD) Non-Af 86, BUN/Creatinine Ratio 20.7 H, Glucose 103, Calcium 8.5 Radiology Impression Soft Tissue Neck CT 06/06/21 00:56 IMPRESSION: Thickened aryepiglottic folds, with fairly unremarkable epiglottis, suggesting atypical presentation of supraglottitis. There is also mild bilateral submandibular edema. Airway is patent. Clinical correlation and close follow-up recommended. Individualized dose optimization techniques were used for this CT. at 0228 Reported and signed by: Joe Mane MD Electronically Signed: Joe Mane MD at 2:26 EST , Assessment & Plan Assessment/Plan (1) Adult supraglottitis: PLAN: The patient is a 65 y/o F w/ PMHx: HTN, HLD, Rheumatoid arthritis, Overweight who presents to the [facility] ED on 06/06/21 with history of onset throat swelling, difficulty swallowing as well as neck swelling with self admi nistration of 10 mg prednisone and claritin as was initially concerned she was having an allergic reaction with some improvement but noted ongoing sensation of swelling and drainage down the back of her throat. #1. Atypical supraglottitis: We will admit to MS telemetry, maintain on monitor be cautious, will allow clear liquids only until reassessment and sure continued improvement, maintain on broad-spectrum antibiotic therapy with IV vancomycin and rocephin w/ de-escalation as able pending work-up and MRSA screen, will obtain a respiratory viral panel/rapid strep, will obtain chest x-ray for possible pneumonia and if any notable findings would add antigen testing. If any concern for worsening status would plan to obtain ENT consultation and transition n.p.o. status. #2. Rheumatoid arthritis: Patient not patient is on Humira subcu injections weekly, encourage continued outpatient follow-up with hemotherapist. Will continue low dose steroids, but given #1 will hold on further steroids. #3. Hypertension: We will continue patient home indapamide, losartan as CT consistent with infection , as needed IV hydralazine. #4. Hyperlipidemia: We will continue patient on statin therapy. #5. DVT prophylaxis: SCDs, Lovenox. Charges/Coding Visit Charges Inpatient E&M: 71306 Init Hosp L2
--- NOTE | 2021-06-06 03:10 | RAD_ITS ---
HISTORY: Dyspnea EXAMINATION/TECHNIQUE: XR Chest 2 Views COMPARISON: None FINDINGS: LINES/DEVICES: None. LUNGS: No pulmonary edema. No focal airspace consolidation. No sizable pleural effusion. No pneumothorax detected. MEDIASTINUM AND CARDIOVASCULAR STRUCTURES: Heart size within normal limits for imaging technique. Central airways and mediastinal contour are unremarkable. BONES AND SOFT TISSUES: No acute findings. RAD/Chest PA and Lateral IMPRESSION: No radiographic evidence of acute cardiopulmonary disease. at 0511 Reported and signed by: Joe Mane MD Electronically Signed: Joe Mane MD at 5:10 EST ,
[2021-06-06] MEDS: 0.9% Normal Saline 1,000 ML 100 ML IV (05:08)
--- NOTE | 2021-06-06 05:59 | PCM.RX.CS ---
Consult Pharmacy has been consulted to manage selected antiobiotic: Vancomycin Type of Consult: New start Labs: Sodium 140 mmol/L (136-145) 06/06/21 01:10 Potassium 4.0 mmol/L (3.5-5.1) 06/06/21 01:10 Chloride 108 mmol/L (98-107) H 06/06/21 01:10 Carbon Dioxide 25.0 mmol/L (21.0-32.0) 06/06/21 01:10 Anion Gap 7 (5-15) 06/06/21 01:10 BUN 15 mg/dL (7-18) 06/06/21 01:10 Creatinine 0.73 mg/dL (0.55-1.02) 06/06/21 01:10 Est GFR (MDRD) Af Amer 104 mL/min (>60) 06/06/21 01:10 Est GFR (MDRD) Non-Af 86 mL/min (>60) 06/06/21 01:10 BUN/Creatinine Ratio 20.7 RATIO (10-20) H 06/06/21 01:10 Glucose 103 mg/dL (74-106) 06/06/21 01:10 Microbiology: Microbiology 06/06/21 02:20 Nasal Secretion SARS-CoV-2 Antigen (Rapid) - Final 06/06/21 02:20 Interface Orders Group A Streptococcus Rapid Screen - Preliminary Weight used for dosin.2 kg Estimated Creatinine Clearance: 75.3 Goal Trough: 15-20 mcg/mL Pharmacy Plan for Drug Dosing: Pharmacy Service will continue to monitor and adjust dosing as required. Medications Vancomycin HCl 1,750 mg/ (Sodium Chloride) 535 mls @ 250 mls/hr IV X1 ONE Stop: 06/06/21 07:38 Last Admin: 06/06/21 05:42 Dose: 250 mls/hr Documented by: Vancomycin HCl (Vancomycin) 1,000 mg in 200 mls @ 200 mls/hr IV Q12H [id number] Follow-Up Labs: Trough Vancomycin Labs to be done on [date and time ordered]: 06/07 @ 5312
[2021-06-06] MEDS: CLARIFY ORDER 1 EACH NOTE (06:04)
[2021-06-06 06:24] LABS: Absolute Lymphocyte Count 0.63 X10^3/uL (0.83-4.51); Absolute Neutrophil Count 10.2 X10^3/uL (2.0-7.7); Basophil# 0.01 X10^3/uL; Basophil% 0.1 % (0-1); Eosinophil# 0.02 X10^3/uL; Eosinophils% 0.2 % (0-5); Hematocrit 37.7 % (37-47); Lymphocyte # 0.63 X10^3/ul (0.83-4.51); Lymphocyte % 5.7 % (19-41); Mean Corp Hgb Conc 34.5 g/dL (32-36); Mean Corpuscular Hgb 31.9 pg (27.0-32.0); Mean Corpuscular Volume 92.4 fL (81-99); Mean Platelet Vol. 9.6 fl (6.2-12.0); Monocyte# 0.07 X10^3/uL; Monocyte% 0.6 % (0-10); NRBC Flagged by Analyzer 0 % (0-5); Neutrophil # 10.16 X10^3/uL (2.7-7.7); Neutrophil % 92.8 % (47-70); Platelet Count 333 K/mm3 (150-450); RBC Distribution Width CV 11.5 % (11.6-14.6); RBC Distribution Width SD 39.2 fl (35.1-43.9); Red Blood Count 4.08 M/mm3 (4.2-5.4)
[2021-06-06 06:40] LABS: ALB/GLOB Ratio 0.9 RATIO (0.9-2.4); AST(SGOT) 19 U/L (15-37); Alanine Aminotransfer ALT/SGPT 22 U/L (13-56); Alkaline Phosphatase 74 U/L (45-117); Anion Gap 5 (5-15); BUN 13 mg/dL (7-18); BUN/Creat Ratio 18.5 RATIO (10-20); Calcium,Total 8.6 mg/dL (8.5-10.1); Chloride 111 mmol/L (98-107); EST Glomerular Filtration Rate 89 mL/min (>60); Est Glom Filt Rate - Afr Amer 107 mL/min (>60); Estimated Creatinine Clearance 70.11 ml/min; Globulin 3.4 g/dL (2.2-4.2); Glucose 178 mg/dL (74-106); Potassium 3.9 mmol/L (3.5-5.1); Protein, Total 6.4 g/dL (6.4-8.2); Sodium Level 140 mmol/L (136-145)
[2021-06-06] MEDS: predniSONE 5 MG Tablet PO (08:19)
--- NOTE | 2021-06-06 08:41 | CASEMGMT ---
Social Work Note Per herpetologist questions, pt has completed HCPOA and LW, not provided copies to [facility] and pt unable to bring in copies. Darlene Espinoza ICER HAND, NUT [employer]
[2021-06-06] MEDS: Losartan Potassium 50 MG Tablet PO (10:20)
[2021-06-06] MEDS: Ceftriaxone 1 GM/50 ML BAG IV (10:20)
--- NOTE | 2021-06-06 10:50 | PCM.DC ---
Discharge Instructions Diet Discharge Diet: No restrictions Activity Discharge Activity: Return to Normal Activity Dressing / Incision Call your doctor if you observe: Fever of 101 or Higher, Shortness of breath and - (Difficulty swallowing) Follow Up Care Test Results: Test results from this visit will be discussed in further detail at your follow-up appointment, if applicable. Discharge Plan Admission Admit Date/Time: 06/06/21 02:50 Primary Reason for Your Visit: Atypical supraglottitis Attending Provider: Guero Nolan Primary Care Provider: Guero Cain Discharge Orders/Prescriptions Prescriptions: New levofloxacin 750 mg tablet 750 mg PO DAILY Qty: 7 RF: 0 clindamycin HCl 300 mg capsule 300 mg PO Q6H Qty: 28 RF: 0 Continued losartan 50 mg tablet 50 mg PO DAILY RF: 0 atorvastatin 20 mg tablet 20 mg PO DAILY RF: 0 prednisone 5 mg tablet 5 mg PO DAILY RF: 0 indapamide 1.25 mg tablet 12.5 mg PO DAILY RF: 0 Humira(CF) Pen 40 mg/0.4 mL pen injector kit 40 mg SUBCUT QWEEK RF: 0 Referrals / Follow Up: Guero Cain MD [Primary Care Provider] - See Referral Note (3-5 days) Disposition Disposition (needs filled in before D/C Order can be placed): Home, Self Care
--- NOTE | 2021-06-06 10:58 | PCM.DC.SUM ---
Documented by User: India Sousa NP, LILY-C 06/06/21 11:12 Providers Date of Admission: 06/06/21 Date of Discharge: 06/06/21 Primary Care Physician: Dr. Guero Cain MD Reason For Visit: ATYPICAL SUPRAGLOTTITIS Diagnosis Discharge Diagnosis (1) Adult supraglottitis: Status: Acute Code(s): J04.30 - Supraglottitis, unspecified, without obstruction Medications at Discharge Home Medications Humira(CF) Pen 40 mg SUBCUT QWEEK 06/06/21 atorvastatin 20 mg PO DAILY 06/06/21 clindamycin HCl 300 mg PO Q6H #28 cap 06/06/21 indapamide 12.5 mg PO DAILY 06/06/21 levofloxacin 750 mg PO DAILY #7 tab 06/06/21 losartan 50 mg PO DAILY 06/06/21 prednisone 5 mg PO DAILY 06/06/21 Hospital Course Operations None Procedures None Summary of Care Provided Hospital Course: Patient is a 65-year-old female admitted 06/06/2021 due to throat swelling and difficulty swallowing. 1. Atypical supraglottitis-soft tissue neck CT shows unremarkable epiglottis, atypical supraglottitis. Mild bilateral submandibular edema. Patent airway. Patient was initiated on IV Vanco and Rocephin. Patient improved quicker than expected and was discharged home in stable condition. Discharged on Levaquin and Clindamycin for 7 days. Follow up with PCP in 3-5 days. 2. Rheumatoid arthritis-on Humira, chronic prednisone. 3. Hypertension-blood pressure intermittently elevated during admission. Continue home indapamide/losartan. 4. Hyperlipidemia-continue statin. Patient seen and examined prior to discharge. Physical assessment as noted below. Patient is stable for discharge with follow up recommendations as noted above. This patient was seen by RAYNA Erickson under the supervision of Dr. Nolan. Time spent examining patient, reviewing data and subsequent management of care: 14 Minutes Physical Exam Const alert, oriented x3 and no apparent distress Orientation / Consciousness: awake, oriented to person, oriented to place and oriented to time HEENT normocephalic and moist oral mucous membranes HEENT Narrative: Submandible swelling, mild tenderness. Eyes PERRL, EOMs intact bilaterally and conjunctivae normal Neck no lymphadenopathy Resp normal respiratory effort and clear to auscultation bilaterally Cardio regular rate, regular rhythm and no murmurs Peripheral Pulses: pulses 2+ throughout GI normal to inspection, nondistended, normoactive bowel sounds, non-tender and non-distended Extremity normal to inspection Skin no rashes or lesions noted Lesions: no lesions Rashes: no rashes Trauma: no lacerations or abrasions Neuro CN's II-XII intact bilaterally, no focal motor deficits, no sensory deficits noted and deep tendon reflexes 2+ bilaterally Psych mental status grossly normal and affect normal Weight / BMI Weight Weight: 156 lb 15.506 oz Body Mass Index (BMI) 26.9 ABG / Lab / Microbiology Data Result Diagrams: 06/06/21 06:09 06/06/21 06:09 Laboratory: Laboratory Results - last 24 hr 06/06/21 01:10: WBC 14.7 H, RBC 4.17 L, Hgb 13.2, Hct 38.4, MCV 92.1, MCH 31.7, MCHC 34.4, RDW Std Deviation 39.2, RDW Coeff of Michael 11.4 L, Plt Count 335, MPV 9.4, Immature Gran % (Auto) 0.500, Neut % (Auto) 80.2 H, Lymph % (Auto) 11.6 L, [place] % (Auto) 2.8, Eos % (Auto) 4.8, Baso % (Auto) 0.1, Absolute Neuts (auto) 11.8 H, Absolute Lymphs (auto) 1.70, Nucleated RBC % 0 06/06/21 01:10: Sodium 140, Potassium 4.0, Chloride 108 H, Carbon Dioxide 25.0, Anion Gap 7, BUN 15, Creatinine 0.73, Estim Creat Clear Calc 67.23, Est GFR (MDRD) Af Amer 104, Est GFR (MDRD) Non-Af 86, BUN/Creatinine Ratio 20.7 H, Glucose 103, Calcium 8.5 06/06/21 06:09: WBC 11.0, RBC 4.08 L, Hgb 13.0, Hct 37.7, MCV 92.4, MCH 31.9, MCHC 34.5, RDW Std Deviation 39.2, RDW Coeff of Michael 11.5 L, Plt Count 333, MPV 9.6, Immature Gran % (Auto) 0.600, Neut % (Auto) 92.8 H, Lymph % (Auto) 5.7 L, [place] % (Auto) 0.6, Eos % (Auto) 0.2, Baso % (Auto) 0.1, Absolute Neuts (auto) 10.2 H, Absolute Lymphs (auto) 0.63 L, Nucleated RBC % 0 06/06/21 06:09: Sodium 140, Potassium 3.9, Chloride 111 H, Carbon Dioxide 24.0, Anion Gap 5, BUN 13, Creatinine 0.70, Estim Creat Clear Calc 70.11, Est GFR (MDRD) Af Amer 107, Est GFR (MDRD) Non-Af 89, BUN/Creatinine Ratio 18.5, Glucose 178 H, Calcium 8.6, Total Bilirubin 0.60, AST 19, ALT 22, Alkaline Phosphatase 74, Total Protein 6.4, Albumin 3.0 L, Globulin 3.4, Albumin/Globulin Ratio 0.9 Microbiology: Microbiology 06/06/21 02:20 Nasal Secretion SARS-CoV-2 Antigen (Rapid) - Final 06/06/21 02:20 Interface Orders Group A Streptococcus Rapid Screen - Preliminary Radiography Diagnostic Testing: Radiology Impression Soft Tissue Neck CT 06/06/21 00:56 IMPRESSION: Thickened aryepiglottic folds, with fairly unremarkable epiglottis, suggesting atypical presentation of supraglottitis. There is also mild bilateral submandibular edema. Airway is patent. Clinical correlation and close follow-up recommended. Individualized dose optimization techniques were used for this CT. at 0228 Reported and signed by: Joe Mane MD Electronically Signed: Joe Mane MD at 2:26 EST , ADDENDUM: 06/06/21 0240 IMPRESSION: Thickened aryepiglottic folds, with fairly unremarkable epiglottis, suggesting atypical presentation of supraglottitis. There is also mild bilateral submandibular edema. Airway is patent. Clinical correlation and close follow-up recommended. Individualized dose optimization techniques were used for this CT. at 0228 Reported and signed by: Joe Mane MD N.B. : The above Results were Read Back by Joe Mane MD to Dr. Eveline MD, and understanding confirmed on 06/06/2021 02:34:05 (ET). Electronically Signed: Joe Mane MD at 2:26 EST , Chest X-Ray 06/06/21 03:10 IMPRESSION: No radiographic evidence of acute cardiopulmonary disease. at 0511 Reported and signed by: Joe Mane MD Electronically Signed: Joe Mane MD at 5:10 EST , D/C Instructions Discharge Diet: No restrictions Call your doctor if you observe: Fever of 101 or Higher, Shortness of breath and - (Difficulty swallowing) Meaningful Use Info Meaningful Use Diagnoses (Choose all that apply): None applicable Discharge Plan Admission Admit Date/Time: 06/06/21 02:50 Primary Reason for Your Visit: Atypical supraglottitis Attending Provider: Guero Nolan Primary Care Provider: Guero Cain Discharge Orders/Prescriptions Prescriptions: New levofloxacin 750 mg tablet 750 mg PO DAILY Qty: 7 RF: 0 clindamycin HCl 300 mg capsule 300 mg PO Q6H Qty: 28 RF: 0 Continued losartan 50 mg tablet 50 mg PO DAILY RF: 0 atorvastatin 20 mg tablet 20 mg PO DAILY RF: 0 prednisone 5 mg tablet 5 mg PO DAILY RF: 0 indapamide 1.25 mg tablet 12.5 mg PO DAILY RF: 0 Humira(CF) Pen 40 mg/0.4 mL pen injector kit 40 mg SUBCUT QWEEK RF: 0 Referrals / Follow Up: Guero Cain MD [Primary Care Provider] - See Referral Note (3-5 days) Disposition Disposition (needs filled in before D/C Order can be placed): Home, Self Care Documented by User: Dr. Guero Nolan DO 06/06/21 15:47 Providers Date of Admission: 06/06/21 Reason For Visit: ATYPICAL SUPRAGLOTTITIS Medications at Discharge Home Medications Humira(CF) Pen 40 mg SUBCUT QWEEK 06/06/21 atorvastatin 20 mg PO DAILY 06/06/21 clindamycin HCl 300 mg PO Q6H #28 cap 06/06/21 indapamide 12.5 mg PO DAILY 06/06/21 levofloxacin 750 mg PO DAILY #7 tab 06/06/21 losartan 50 mg PO DAILY 06/06/21 prednisone 5 mg PO DAILY 06/06/21 Hospital Course Operations None Procedures None Summary of Care Provided Minutes Spent on Discharge: 35 Hospital Course: 65-year-old female presents with sudden onset of throat swelling and difficulty swallowing. Patient was not having any trismus nor any airway compromise but CAT scan showed an atypical presentation of supraglottitis. Patient was started on ceftriaxone as well as vancomycin. She improved. Patient will be discharged today to complete week of levofloxacin and clindamycin. Patient is immunocompromise start taking Humira for rheumatoid arthritis as well as prednisone. Patient has recently seen her dentist and has been told that she has no concerning cavities. Patient advised if she does have any evidence of trismus or trouble breathing or managing her secretions come back into the emergency room emergently. Physical Exam Const alert and oriented x3 HEENT HEENT Narrative: Noted uvular swelling. Mallampati II. Submandibular swelling slight. Psych affect normal ABG / Lab / Microbiology Data Result Diagrams: 06/06/21 06:09 06/06/21 06:09 Discharge Plan Admission Admit Date/Time: 06/06/21 02:50 Primary Reason for Your Visit: Atypical supraglottitis Attending Provider: Guero Nolan Primary Care Provider: Guero Cain Discharge Orders/Prescriptions Prescriptions: New levofloxacin 750 mg tablet 750 mg PO DAILY Qty: 7 RF: 0 clindamycin HCl 300 mg capsule 300 mg PO Q6H Qty: 28 RF: 0 Continued losartan 50 mg tablet 50 mg PO DAILY RF: 0 atorvastatin 20 mg tablet 20 mg PO DAILY RF: 0 prednisone 5 mg tablet 5 mg PO DAILY RF: 0 indapamide 1.25 mg tablet 12.5 mg PO DAILY RF: 0 Humira(CF) Pen 40 mg/0.4 mL pen injector kit 40 mg SUBCUT QWEEK RF: 0 Referrals / Follow Up: Guero Cain MD [Primary Care Provider] - See Referral Note (3-5 days) Disposition Disposition (needs filled in before D/C Order can be placed): Home, Self Care Charges/Coding Visit Charges Inpatient E&M: 31654 Disch Hosp
--- NOTE | 2021-06-06 11:18 | CASEMGMT ---
MCKENNA MCGREGOR Assessment: Face to Face with pt for initial transition planning/care coordination assessment. RN BALBIR introduced self and role at [facility], pt voices understanding and consents to assessment. Pt is A/O x4 and answers all questions appropriately at this time. Pt sitting on edge of bed in no distress with at bedside. Care providers, pharmacy, and demographics verified/updated. Admitting Dx: atypical supraglottitis PCP:Kit Cain Specialists: to [facility] Pharmacy: [facility] Insurance: [facility] Prescription Benefit: yes LW/HPOA: Pt has a LW/DPOA on file at [facility]. Her DPOA is her Terence Conway. LNOK: Terence Conway, ; Jessie Mendoza dtr Living Arrangements: Pt lives with in a single story house with 4-5 steps to enter with a rail on each side. Pt reports she is I in ADL's and denies concerns at home. Transportation: Pt drives self and denies concerns with transportation. DME/HHC/SNF: Pt denies having any DME, hx of HHC or SNF stays. Pt states no concerns with going home at time of dc. Pt states no further concerns/needs. CM to follow. Advised pt to ask CM if any further question/concerns/needs arise, voices understanding. Pt Goal: Home Plan: Home
[2021-06-06 17:28] LABS: M R Staph aureus DNA By PCR Negative (Negative); Probe Check PASS; Specimen Processing Control PASS
== END 2021-06-06 13:05 | disposition home or self-care (01) | DRG 153 ==
LOC: ED 02:54 → MS3 07:13
PROVIDERS: Admitting Provider Family Medicine; Emergency Provider Emergency Medicine; PCP Family Medicine; Referring Provider Family Medicine
DX: J04.30 Supraglottitis, unspecified, without obstruction (principal); M06.9 Rheumatoid arthritis, unspecified; E78.5 Hyperlipidemia, unspecified; I10 Essential (primary) hypertension; Z87.891 Personal history of nicotine dependence; Z79.899 Other long term (current) drug therapy; Z79.52 Long term (current) use of systemic steroids
CPT/HCPCS: 96361; 36415; 70491; 71046; 80048; 80053; 85025; 87081; 87426; 87641; 87880; 96365; 96366; 96367; 96375; 99218; 99285; J7030; J7040; Q9967; A4216; G0378; J0295

== ENCOUNTER 2021-06-14 23:16 | Observation (INO) | payer OTHER, SELFPAY ==
[2021-06-14 23:17] VITALS: BP 189/91; PULSE 92; RESP 18; TEMP 35.8; O2SAT 98; BMI 25.5
--- NOTE | 2021-06-14 23:32 | EDS_ITS ---
HPI History of Present Illness Chief Complaint: Allergic Reaction Narrative Narrative: Patient with past medical history of rheumatoid arthritis presents with difficulty swallowing and the feeling like something is stuck in her throat. She states that on June 05, approximately 10 days ago, she was diagnosed in the emergency department with epiglottitis. She finished her course of two antibiotics, levofloxacin and clindamycin on Sunday, 2 days ago. She followed up with her primary care physician yesterday who states that everything looked well. She was never placed on steroids. She states the last time she was in the emergency department they did a chest x-ray, lab work, and a CT of her throat. At that time her entire neck was swollen. She states that she had eaten something and approximately an hour ago began having the symptoms again as if something were stuck in her throat. She denies any drooling. No fever or chills. No other symptoms. No exacerbating or alleviating factors. PFSH PFS Medical History Former tobacco use HLD (hyperlipidemia) HTN (hypertension) Overweight Rheumatoid arthritis Home Medications Humira(CF) Pen 40 mg SUBCUT QWEEK 06/06/21 [History Last Taken Unknown] atorvastatin 20 mg PO DAILY 06/06/21 [History Last Taken Unknown] clindamycin HCl 300 mg PO Q6H #28 cap 06/06/21 [Rx Last Taken Unknown] indapamide 12.5 mg PO DAILY 06/06/21 [History Last Taken Unknown] levofloxacin 750 mg PO DAILY #7 tab 06/06/21 [Rx Last Taken Unknown] losartan 50 mg PO DAILY 06/06/21 [History Last Taken Unknown] prednisone 5 mg PO DAILY 06/06/21 [History Last Taken Unknown] Allergy/AdvReac Type Severity Reaction Status Date / Time Sulfa (Sulfonamide Allergy Rash Verified 04/22/18 12:23 Antibiotics) morphine AdvReac Other Verified 04/22/18 12:23 Family History Mother Heart disease Hypertension HLD (hyperlipidemia) Father Myasthenia gravis Surgical History H/O section History of bilateral carpal tunnel release Hx of elbow surgery Social History household members: spouse Smoking Status: Former smoker how long ago did patient quit smoking: Quit 29 years ago, smoked 3-4 cig/daily since age 23 until quit. alcohol intake: current alcohol intake frequency: 0-2 drinks per day Alcohol type: wine substance use type: does not use ROS ROS ED ROS Narrative Constitutional: No fever, no chills. HEENT: No sore throat. No neck pain. No loss of vision. No rhinorrhea. Feels like something is stuck in throat/thick, feelings similar to early epiglottitis. Cardiovascular: No chest pain. No palpitations. No pedal edema. Respiratory: No cough, no shortness of breath. Abdominal: No abdominal pain. No nausea. No vomiting. Genitourinary: No dysuria. No hematuria. Musculoskeletal: No myalgias. No arthralgias. Neurologic: No headaches. No dizziness. No lightheadedness. Skin: No rash. No change in color. Psychiatric: No depression. No anxiety. EXAM Physical Exam Narrative Exam Narrative: Afebrile. Vital signs noted. HEENT: Normocephalic. Atraumatic. PERRL, EOMI. Neck soft and supple. No point tenderness or step off. Airway patent. No drooling or trismus. Cardiovascular: Regular rate and rhythm. No murmurs, rubs, or gallops appreciated. Respiratory: No tachypnea. Lungs clear to auscultation bilaterally. Gastrointestinal: Abdomen soft, nontender, with normoactive bowel sounds. No rebound or guarding. Neurological: Awake. Alert. Nonfocal, nonlateralizing. Skin: No rash. Normal color. No pallor. Musculoskeletal: No pedal edema. Full range of motion extremities. Const Vital Signs: 06/14/21 23:17 Temperature 96.4 F L Temperature Source Temporal Pulse Rate 92 Respiratory Rate 18 Blood Pressure 189/91 H Blood Pressure Mean 123 Pulse Ox 98 Oxygen Delivery Method Room Air MDM MDM MDM Narrative Medical decision making narrative: I reviewed her prior EMR. I will obtain a CBC, BMP, and reperformed CT with IV contrast of the soft tissue of the neck. In review of her EMR, she did not have epiglottitis. She had a white count of 14,000, but the CT of the soft tissue neck showed supraglottitis and the ep iglottis appeared normal. Her BMP was unremarkable at that time. At this point in time, I will recheck her CT scan. She has normal white count today. Her electrolyte panel is grossly unremarkable. Pulse ox is 98% on room air. Her CT scan did show indistinct mildly thickened appearance of the laryngeal soft tissues with what appears to be possible edema of the pharyngeal mucosa at the level of the piriform sinuses. There is also hypertrophied appearance of the posterior wall of the hypopharynx. Consider possible laryngeal edema laryngitis. Radiology suggests either direct visualization or MRI. She will be given Decadron 10 mg intravenously. At this point in time, I discussed the patient with the hospitalist for observation and possible MRI versus ENT consultation. Patient will be observed in stable condition. Lab Data Attestation: I reviewed the patient's lab results. Labs: Laboratory Results - last 24 hr 06/14/21 06/14/21 23:42 23:42 WBC 8.6 RBC 4.08 L Hgb 13.4 Hct 37.5 MCV 91.9 MCH 32.8 H MCHC 35.7 RDW Std Deviation 38.9 RDW Coeff of Michael 11.5 L Plt Count 345 MPV 9.3 Immature Gran % (Auto) 0.700 Neut % (Auto) 62.6 Lymph % (Auto) 23.6 [place] % (Auto) 4.1 Eos % (Auto) 8.8 H Baso % (Auto) 0.2 Absolute Neuts (auto) 5.4 Absolute Lymphs (auto) 2.03 Nucleated RBC % 0 Sodium 136 Potassium 3.5 Chloride 104 Carbon Dioxide 27.0 Anion Gap 5 BUN 15 Creatinine 1.02 Estim Creat Clear Calc 48.12 Est GFR (MDRD) Af Amer 70 Est GFR (MDRD) Non-Af 58 L BUN/Creatinine Ratio 14.7 Glucose 126 H Calcium 8.4 L Radiography Diagnostic Testing: Clinical Impression(s) from Imaging Studies Soft Tissue Neck CT 06/15/21 23:31 IMPRESSION: There is a indistinct mildly thickened appearance of the laryngeal soft tissues with what appears to be possible edema of the pharyngeal mucosa especially at the level of the pyriform sinuses. In correlation with any prior history of tracheostomy or injury. There is a hypertrophied appearance of the posterior wall of the hypopharynx. Consider possible laryngeal edema laryngitis. Recommend direct visualization. Potentially MRI may be helpful for further evaluation. There is no visualized thickening of the epiglottis to suggest epiglottitis. No visualized focal enhancing mass. Small nodule periphery right thyroid measuring 9.3 mm could consider follow-up ultrasound. Electronically Signed: Annel Finnegan MD at 0:55 EST Reading Location ID and State: [facility] [place] Tel , Service support , Discharge Plan Dx/Rx/DC Orders Clinical Impression: Laryngeal edema Disposition Disposition: Acute Care Hospital [facility]
[2021-06-14 23:48] LABS: Absolute Lymphocyte Count 2.03 X10^3/uL (0.83-4.51); Absolute Neutrophil Count 5.4 X10^3/uL (2.0-7.7); Basophil# 0.02 X10^3/uL; Basophil% 0.2 % (0-1); Eosinophil# 0.76 X10^3/uL; Eosinophils% 8.8 % (0-5); Hematocrit 37.5 % (37-47); Hemoglobin 13.4 g/dL (12.0-15.0); Lymphocyte # 2.03 X10^3/ul (0.83-4.51); Lymphocyte % 23.6 % (19-41); Mean Corp Hgb Conc 35.7 g/dL (32-36); Mean Corpuscular Hgb 32.8 pg (27.0-32.0); Mean Corpuscular Volume 91.9 fL (81-99); Mean Platelet Vol. 9.3 fl (6.2-12.0); Monocyte# 0.35 X10^3/uL; Monocyte% 4.1 % (0-10); NRBC Flagged by Analyzer 0 % (0-5); Neutrophil # 5.37 X10^3/uL (2.7-7.7); Neutrophil % 62.6 % (47-70); Platelet Count 345 K/mm3 (150-450); RBC Distribution Width CV 11.5 % (11.6-14.6); RBC Distribution Width SD 38.9 fl (35.1-43.9); Red Blood Count 4.08 M/mm3 (4.2-5.4); White Blood Count 8.6 K/mm3 (4.4-11.0)
[2021-06-15 00:07] LABS: Anion Gap 5 (5-15); BUN 15 mg/dL (7-18); BUN/Creat Ratio 14.7 RATIO (10-20); Calcium,Total 8.4 mg/dL (8.5-10.1); Chloride 104 mmol/L (98-107); Creatinine, Serum 1.02 mg/dL (0.55-1.02); EST Glomerular Filtration Rate 58 mL/min (>60); Est Glom Filt Rate - Afr Amer 70 mL/min (>60); Estimated Creatinine Clearance 48.12 ml/min; Glucose 126 mg/dL (74-106); Potassium 3.5 mmol/L (3.5-5.1); Sodium Level 136 mmol/L (136-145)
[2021-06-15] MEDS: dexAMETHasone 10 MG/ML Vial IV (01:08)
--- NOTE | 2021-06-15 01:13 | PCM.HP.STD ---
HPI - General General Date of Admission: 06/15/21 Date of Service: 06/15/21 Chief Complaint: Dysphagia, recurrent. HPI Narrative The patient is a 65 y/o F w/ PMHx: HTN, HLD, Rheumatoid arthritis, Overweight, initially presented on 06/06/21 with history of throat swelling, difficulty swallowing as well as neck swelling with self administration of 10 mg prednisone x 2 tablets and claritin as she was concerned for possible allergic reaction with ED evaluation at that time w/ intact airway and mildly elevated WBC with L shift as well as CT soft tissue neck with a thickened area epiglottis folds with fairly unremarkable epiglottis suggestive of atypical presentation of supraglottitis with mild bilateral submandibular edema with airway patent admitted with rocephin and vancomcyin with initial ED administration Solu-Medrol 60 mg IV x1 with notable improvement therefore discharge on the same day later in the day on levaquin and clindamyin regimen x 7 day course completed 2 days prior to current presentation who now re-presents to the [facility] ED on 06/15/21 secondary to ongoing difficulty with swallowing and sensation that there is something stuck in her throat as well as recurrent swelling to the neck approximately 1 hour prior to ED evaluation. Work-up in the ED included T 96.4, heart rate 92, BP 189/91, respiratory rate 18, 98% on room air, CBC with WC 8.6, hemoglobin 13.4, platelet 345 without marked left shift with eosinophilia noted, BMP not marked aside glucose 126, CT soft tissue neck with an indistinct mildly thickened appearance of the laryngeal soft tissues with possibly edema of the pharyngeal mucosa especially at the level of the piriform sinuses, hypertrophied appearance of the posterior wall of the hypopharynx, small nodule in the periphery of the right thyroid measuring 9.3 mm. In the ED patient ministered Decadron 10 mg IV x1. Patient given recurrent symptoms was anxious to return home per discussion with ED physician. [facility] Medical History Former tobacco use HLD (hyperlipidemia) HTN (hypertension) Overweight Rheumatoid arthritis Home Medications Humira(CF) Pen 40 mg SUBCUT QWEEK 06/06/21 [History Last Taken Unknown] atorvastatin 20 mg PO DAILY 06/06/21 [History Last Taken Unknown] clindamycin HCl 300 mg PO Q6H #28 cap 06/06/21 [Rx Last Taken Unknown] indapamide 12.5 mg PO DAILY 06/06/21 [History Last Taken Unknown] levofloxacin 750 mg PO DAILY #7 tab 06/06/21 [Rx Last Taken Unknown] losartan 50 mg PO DAILY 06/06/21 [History Last Taken Unknown] prednisone 5 mg PO DAILY 06/06/21 [History Last Taken Unknown] Allergy/AdvReac Type Severity Reaction Status Date / Time Sulfa (Sulfonamide Allergy Rash Verified 04/22/18 12:23 Antibiotics) morphine AdvReac Other Verified 04/22/18 12:23 Family History Mother Heart disease Hypertension HLD (hyperlipidemia) Father Myasthenia gravis Surgical History H/O section History of bilateral carpal tunnel release Hx of elbow surgery Social History household members: spouse Smoking Status: Former smoker how long ago did patient quit smoking: Quit 29 years ago, smoked 3-4 cig/daily since age 23 until quit. alcohol intake: current alcohol intake frequency: 0-2 drinks per day Alcohol type: wine substance use type: does not use ROS ROS Narrative Admission Review of Systems: CONSTITUTIONAL: No weight loss, fever, chills, weakness or fatigue. HEENT: + Dysphagia, swollen neck. Eyes: No visual loss, blurred vision, double vision or yellow sclerae. Ears, Nose, Throat: No hearing loss, sneezing, congestion. SKIN: No rash or itching, lesions, wounds. CARDIOVASCULAR: No chest pain, chest pressure or chest discomfort, palpitations, edema, orthopnea, syncopal events. RESPIRATORY: No shortness of breath, cough or sputum, wheezing, hemoptysis. GASTROINTESTINAL: No anorexia, nausea, vomiting or diarrhea, abdominal pain, melena, BRBPR. GENITOURINARY: No dysuria, frequency, urgency or retention. NEUROLOGICAL: No headache, dizziness, syncope, paralysis, ataxia, numbness or tingling in the extremities, focal weakness, change in bowel or bladder control, seizure. MUSCULOSKELETAL: + muscle, back pain, joint pain or stiffness. HEMATOLOGIC: No anemia, bleeding or bruising. LYMPHATICS: No enlarged nodes. No history of splenectomy. PSYCHIATRIC: No history of depression or anxiety. ENDOCRINOLOGIC: No reports of sweating, cold or heat intolerance. No polyuria or polydipsia. ALLERGIES: No history of asthma, hives, eczema or rhinitis. Vital Signs Vital Signs Vital Signs: 06/14/21 23:17 Temperature 96.4 F L Temperature Source Temporal Pulse Rate 92 Respiratory Rate 18 Blood Pressure 189/91 H Blood Pressure Mean 123 Pulse Ox 98 Oxygen Delivery Method Room Air Weight Weight: 149 lb Body Mass Index (BMI) 25.5 Physical Exam Narrative Physical Examination: General: Awake, alert, oriented x 3 and cooperative, seated upright in the ED bed, NAD, better appearance than her prior admission, notes recurrent anterior neck edema and dysphagia 1 hour prior to ED arrival. Skin: Normal color, normal turgor, no icterus, no cyanosis. HEENT: AT/NC, EOMI, PERRLA, MMM, anterior neck recurrent edema, less than last initial ED evaluation during prior admission, TTP, mild cervical LAD, no carotid bruits or JVD noted, speaking in full sentences with patent airway. Lungs: Diminished, greater bases, appropriate effort, no rales, ronchi or wheezing. Heart: Regular rate with regular rhythm; no gallop, rub audible. Abdomen: Soft, overweight, NTTP, ND, normal BS, no HSM. Extremities: No cyanosis, clubbing, or edema. Neurological: Patient awake, alert, oriented as noted, cognitive function intact; pupils equally reactive to light and accommodation, cranial nerves II-XII grossly normal, moving all 4 extremities, no focal deficits, strength mildly global decrease secondary to acute presentation. Psychiatric: Affect appears fatigued otherwise NAD, no acute evidence of depressive or anxiety feelings. Results Lab / Micro Data Result Diagrams: 06/14/21 23:42 06/14/21 23:42 Labs: Laboratory Results - last 24 hr 06/14/21 23:42: WBC 8.6, RBC 4.08 L, Hgb 13.4, Hct 37.5, MCV 91.9, MCH 32.8 H, MCHC 35.7, RDW Std Deviation 38.9, RDW Coeff of Michael 11.5 L, Plt Count 345, MPV 9.3, Immature Gran % (Auto) 0.700, Neut % (Auto) 62.6, Lymph % (Auto) 23.6, [place] % (Auto) 4.1, Eos % (Auto) 8.8 H, Baso % (Auto) 0.2, Absolute Neuts (auto) 5.4, Absolute Lymphs (auto) 2.03, Nucleated RBC % 0 06/14/21 23:42: Sodium 136, Potassium 3.5, Chloride 104, Carbon Dioxide 27.0, Anion Gap 5, BUN 15, Creatinine 1.02, Estim Creat Clear Calc 48.12, Est GFR (MDRD) Af Amer 70, Est GFR (MDRD) Non-Af 58 L, BUN/Creatinine Ratio 14.7, Glucose 126 H, Calcium 8.4 L Radiology Impression Soft Tissue Neck CT 06/15/21 23:31 IMPRESSION: There is a indistinct mildly thickened appearance of the laryngeal soft tissues with what appears to be possible edema of the pharyngeal mucosa especially at the level of the pyriform sinuses. In correlation with any prior history of tracheostomy or injury. There is a hypertrophied appearance of the posterior wall of the hypopharynx. Consider possible laryngeal edema laryngitis. Recommend direct visualization. Potentially MRI may be helpful for further evaluation. There is no visualized thickening of the epiglottis to suggest epiglottitis. No visualized focal enhancing mass. Small nodule periphery right thyroid measuring 9.3 mm could consider follow-up ultrasound. Electronically Signed: Annel Finnegan MD at 0:55 EST Reading Location ID and State: [address] [place] [address] Tel , Service support , Assessment & Plan Assessment/Plan (1) Laryngeal edema: PLAN: The patient is a 65 y/o F w/ PMHx: HTN, HLD, Rheumatoid arthritis, Overweight, initially presented on 06/06/21 with history of throat swelling, difficulty swallowing as well as neck treated for acute supraglottitis who now re-presents to the [facility] ED on 06/15/21 secondary to ongoing difficulty with swallowing and sensation that there is something stuck in her throat as well as recurrent swelling to the neck approximately 1 hour prior to ED evaluation. #1. Dysphagia with Pharyngeal mucosal edema, recent evaluation Atypical supraglottitis: CT soft tissue neck with an indistinct mildly thickened appearance of the laryngeal soft tissues with possibly edema of the pharyngeal mucosa especially at the level of the piriform sinuses, hypertrophied appearance of the posterior wall of the hypopharynx, small nodule in the periphery of the right thyroid measuring 9.3 mm. In the ED patient ministered Decadron 10 mg IV x1. Recently completed aggressive abx regimen with no fevers and CBC with no marked WBC elevation or L shift. Will admit to [facility], will hold on further abx and hold on further IV decadron as recently administered and request AM ENT consultation, allow clears, monitor for any airway worsening status but current oxygenating appropriate. If ENT recommends may add abx versus steroids. Will hold on further imaging until ENT evaluates patient. Procalcitonin requested. Additionally will temporarily hold patient losartan given atypical presentation over 2 admissions now pending ENT evaluation. #2. Abnormal thyroid: CT with focus of low attenuation within the periphery of the right thyroid that measures 9.3 mm otherwise the thyroid gland appears homogeneous, mildly thickened appearance of the esophagus, will obtain TSH and FT4, may need to consider thyroid focused US. #3. Rheumatoid arthritis: Patient not patient is on Humira subcu injections weekly, encourage continued outpatient follow-up with waste handling technician. Will continue low dose steroids, but given #1 will hold on further steroids. #4. Hypertension: We will continue patient home indapamide, will temporarily hold losartan given patient atypical presentation over two admissions now pending ENT evaluation, as needed IV hydralazine. #5. Hyperlipidemia: We will continue patient on statin therapy. #6. DVT prophylaxis: SCDs, Lovenox. Charges/Coding Visit Charges OBSV E&M: 68170 Initial observation care L2
[2021-06-15 02:02] VITALS: BP 189/91; PULSE 92; RESP 18; TEMP 35.8; O2SAT 98
[2021-06-15 02:21] VITALS: BMI 26.5
[2021-06-15 02:25] VITALS: BP 166/81; PULSE 87; RESP 18; TEMP 36.8; O2SAT 95
[2021-06-15 02:27] VITALS: BP 149/83
[2021-06-15] MEDS: Famotidine 20 MG Tablet PO ×2 (02:33→10:00)
[2021-06-15 02:43] LABS: Procalcitonin 0.16 ng/mL (0.00-0.09)
[2021-06-15 04:57] LABS: Absolute Lymphocyte Count 0.99 X10^3/uL (0.83-4.51); Absolute Neutrophil Count 9.8 X10^3/uL (2.0-7.7); Basophil# 0.01 X10^3/uL; Basophil% 0.1 % (0-1); Eosinophil# 0.37 X10^3/uL; Eosinophils% 3.2 % (0-5); Hematocrit 37.8 % (37-47); Hemoglobin 13.1 g/dL (12.0-15.0); Lymphocyte # 0.99 X10^3/ul (0.83-4.51); Lymphocyte % 8.7 % (19-41); Mean Corp Hgb Conc 34.7 g/dL (32-36); Mean Corpuscular Hgb 31.8 pg (27.0-32.0); Mean Corpuscular Volume 91.7 fL (81-99); Mean Platelet Vol. 10.1 fl (6.2-12.0); Monocyte% 1.7 % (0-10); NRBC Flagged by Analyzer 0 % (0-5); Neutrophil # 9.81 X10^3/uL (2.7-7.7); Neutrophil % 85.8 % (47-70); Platelet Count 351 K/mm3 (150-450); RBC Distribution Width CV 11.6 % (11.6-14.6); RBC Distribution Width SD 39.3 fl (35.1-43.9); Red Blood Count 4.12 M/mm3 (4.2-5.4); White Blood Count 11.4 K/mm3 (4.4-11.0)
[2021-06-15 05:29] LABS: AST(SGOT) 16 U/L (15-37); Alanine Aminotransfer ALT/SGPT 20 U/L (13-56); Albumin, Serum 3.2 g/dL (3.2-5.0); Alkaline Phosphatase 71 U/L (45-117); Anion Gap 8 (5-15); BUN 13 mg/dL (7-18); BUN/Creat Ratio 15.8 RATIO (10-20); Calcium,Total 8.8 mg/dL (8.5-10.1); Chloride 104 mmol/L (98-107); Creatinine, Serum 0.82 mg/dL (0.55-1.02); EST Glomerular Filtration Rate 74 mL/min (>60); Est Glom Filt Rate - Afr Amer 90 mL/min (>60); Estimated Creatinine Clearance 59.85 ml/min; Globulin 3.2 g/dL (2.2-4.2); Glucose 125 mg/dL (74-106); Potassium 3.9 mmol/L (3.5-5.1); Protein, Total 6.4 g/dL (6.4-8.2); Sodium Level 137 mmol/L (136-145); T4 Free Direct 1.24 ng/dL (0.76-1.46); Thyroid Stim Hormone (TSH) 0.57 uIU/mL (0.358-3.74)
[2021-06-15 08:16] VITALS: BP 132/89; PULSE 99; RESP 14; TEMP 36.6; O2SAT 92
--- NOTE | 2021-06-15 08:16 | PCM.HOSP.N ---
Hospitalist Note Patient admitted with throat swelling, difficulty swallowing saliva secretions and food. She self medicated 2 tablets of 10 mg prednisone at home. She recently had losartan increased from 50 to 100 mg and also doubled her dose of Humira by her sole skiver. She has history of rheumatoid arthritis. CT soft tissue neck showed thickened appearance of laryngeal soft tissue with possible minimal pharyngeal mucosa at the level of the pyriform sinuses, posterior wall of hypopharynx. Patient denies shortness of breath, dyspnea or labored breathing. No stridor. Patient had similar presentation when she came to ER on 06/06 was discharged after Solu-Medrol dose on antibiotic clindamycin and Levaquin which she completed 2 days prior to admission today on 06/15/2020 H&P reviewed. Patient had recent 2 visits for severe recurrent globus sensation. Physical exam On oropharyngeal exam: No appreciable swelling of oral mucosa or posterior part of tongue, tonsillar folds. Patient was further evaluated by ENT Dr. Coy Mcclure she had laryngoscopy which showed slight amount of right posterior aryepiglottic fold supraglottic edema. Normal cord motion, voice normal tolerating secretions. Impression losartan possible etiology. Follow-up in ENT clinic 2 weeks. Continue Decadron 4 mg every 12 hourly. Patient had 10 mg IV Decadron at time of admission.
[2021-06-15] MEDS: dexAMETHasone 4 MG/ML Vial IV (09:59)
[2021-06-15] MEDS: 0.9% Saline Lock 10 ML Syringe IV (09:59)
[2021-06-15] MEDS: Enoxaparin 40 MG/0.4 ML Syringe SC (10:00)
[2021-06-15] MEDS: Indapamide 2.5 MG Tablet 1.25 MG PO (10:00)
--- NOTE | 2021-06-15 10:27 | NURSING ---
Dr. Dey called, states he will be over in about an hour to see patient. Patient aware, states he will stop by the ER and corn picker the laryngoscope on his way to the unit.
--- NOTE | 2021-06-15 11:53 | PCM.CONS.GEN ---
Assessment & Plan Assessment/Plan (1) Laryngeal edema: PLAN: 65 year old female with acute laryngeal edema -feels well today with minimal complaints -laryngoscopy with slight amount of right posterior aryepiglottic fold supraglottic edema. glottis crisp. normal cord motion. voice normal. tolerating secretions. -discussed unknown etiology. potentially losartan, less likely humira. would send on antibiotics x 7 days and omeprazole 40mg daily x 1 month. will see in [facility] in 2 wks. HPI Consult Data Date of Consult: 06/15/21 HPI Narrative Reason for Consultation: laryngeal edema HPI Narrative: ABEL SILVER, is a 65 F who presents with acute laryngeal edema. on humira and losartan; has had two recent episodes of severe recurrent globus sensation. no acute dyspnea or stridor. received decadron and symptoms have improved. WBC 9k. PFSH Medical History Former tobacco use HLD (hyperlipidemia) HTN (hypertension) Overweight Rheumatoid arthritis Home Medications Humira(CF) Pen 40 mg SUBCUT QWEEK 06/06/21 [History Last Taken Unknown] atorvastatin 20 mg PO DAILY 06/06/21 [History Last Taken Unknown] clindamycin HCl 300 mg PO Q6H #28 cap 06/06/21 [Rx Last Taken Unknown] indapamide 12.5 mg PO DAILY 06/06/21 [History Last Taken Unknown] levofloxacin 750 mg PO DAILY #7 tab 06/06/21 [Rx Last Taken Unknown] losartan 50 mg PO DAILY 06/06/21 [History Last Taken Unknown] prednisone 5 mg PO DAILY 06/06/21 [History Last Taken Unknown] Allergy/AdvReac Type Severity Reaction Status Date / Time Sulfa (Sulfonamide Allergy Rash Verified 04/22/18 12:23 Antibiotics) morphine AdvReac Other Verified 18 12:23 Family History Mother Heart disease Hypertension HLD (hyperlipidemia) Father Myasthenia gravis Surgical History H/O section History of bilateral carpal tunnel release Hx of elbow surgery Social History household members: spouse Smoking Status: Former smoker how long ago did patient quit smoking: Quit 29 years ago, smoked 3-4 cig/daily since age 23 until quit. alcohol intake: current alcohol intake frequency: 0-2 drinks per day Alcohol type: wine substance use type: does not use ROS Constitutional Constitutional: Reports systems reviewed and no addt'l complaints, except as documented Physical Exam Const alert and oriented x3 General Appearance: cooperative Orientation / Consciousness: awake Exam Limitations: no limitations HEENT normocephalic HEENT Narrative: pharynx normal, soft palate normal. voice normal. Face and Sinus: normal facial exam; Negative for sinus tenderness Nose: external nose normal External Ear: external ears normal Mouth: oral and palatal mucosa normal Lab / Micro Data Result Diagrams: 06/15/21 03:48 06/15/21 03:48 Labs: Laboratory Results - last 24 hr 06/14/21 23:42: WBC 8.6, RBC 4.08 L, Hgb 13.4, Hct 37.5, MCV 91.9, MCH 32.8 H, MCHC 35.7, RDW Std Deviation 38.9, RDW Coeff of Michael 11.5 L, Plt Count 345, MPV 9.3, Immature Gran % (Auto) 0.700, Neut % (Auto) 62.6, Lymph % (Auto) 23.6, [place] % (Auto) 4.1, Eos % (Auto) 8.8 H, Baso % (Auto) 0.2, Absolute Neuts (auto) 5.4, Absolute Lymphs (auto) 2.03, Nucleated RBC % 0 06/14/21 23:42: Sodium 136, Potassium 3.5, Chloride 104, Carbon Dioxide 27.0, Anion Gap 5, BUN 15, Creatinine 1.02, Estim Creat Clear Calc 48.12, Est GFR (MDRD) Af Amer 70, Est GFR (MDRD) Non-Af 58 L, BUN/Creatinine Ratio 14.7, Glucose 126 H, Calcium 8.4 L 06/15/21 02:00: Procalcitonin 0.16 H 06/15/21 03:48: WBC 11.4 H, RBC 4.12 L, Hgb 13.1, Hct 37.8, MCV 91.7, MCH 31.8, MCHC 34.7, RDW Std Deviation 39.3, RDW Coeff of Michael 11.6, Plt Count 351, MPV 10.1, Immature Gran % (Auto) 0.500, Neut % (Auto) 85.8 H, Lymph % (Auto) 8.7 L, [place] % (Auto) 1.7, Eos % (Auto) 3.2, Baso % (Auto) 0.1, Absolute Neuts (auto) 9.8 H, Absolute Lymphs (auto) 0.99, Nucleated RBC % 0 06/15/21 03:48: Sodium 137, Potassium 3.9, Chloride 104, Carbon Dioxide 25.0, Anion Gap 8, BUN 13, Creatinine 0.82, Estim Creat Clear Calc 59.85, Est GFR (MDRD) Af Amer 90, Est GFR (MDRD) Non-Af 74, BUN/Creatinine Ratio 15.8, Glucose 125 H, Calcium 8.8, Total Bilirubin 0.60, AST 16, ALT 20, Alkaline Phosphatase 71, Total Protein 6.4, Albumin 3.2, Globulin 3.2, Albumin/Globulin Ratio 1.0, TSH 0.57, Free T4 1.24 Radiology Impression Soft Tissue Neck CT 06/15/21 23:31 IMPRESSION: There is a indistinct mildly thickened appearance of the laryngeal soft tissues with what appears to be possible edema of the pharyngeal mucosa especially at the level of the pyriform sinuses. In correlation with any prior history of tracheostomy or injury. There is a hypertrophied appearance of the posterior wall of the hypopharynx. Consider possible laryngeal edema laryngitis. Recommend direct visualization. Potentially MRI may be helpful for further evaluation. There is no visualized thickening of the epiglottis to suggest epiglottitis. No visualized focal enhancing mass. Small nodule periphery right thyroid measuring 9.3 mm could consider follow-up ultrasound. Electronically Signed: Annel Finnegan MD at 0:55 EST ,
--- NOTE | 2021-06-15 11:58 | PCM.OPRPT ---
Problems Associated Problem List Diagnoses (1) Laryngeal edema: Report of Operation Date of Procedure: 06/15/21 Pre-Operative Diagnosis: laryngeal edema Post-Operative Diagnosis: laryngeal edema Surgery/Procedure Performed:: flexible laryngoscopy Surgeon: Coy Dey Type of Anesthesia: Local Description of Procedure: the flexible laryngoscope was inserted into the left nasal cavity. the tongue base and epiglottis were normal. larynx with slight amount of right posterior aryepiglottic fold supraglottic edema. glottis crisp. voice normal. tolerating secretions. visualized subglottis normal.
[2021-06-15 13:24] VITALS: BP 147/81; PULSE 101; RESP 15; TEMP 36.8; O2SAT 95
--- NOTE | 2021-06-15 14:20 | NURSING ---
Erroneous Charting - No BM
--- NOTE | 2021-06-15 14:44 | PCM.DC ---
Discharge Instructions Diet Discharge Diet: Soft diet (For next 3 days and then regular diet) Dressing / Incision Call your doctor if you observe: Fever of 101 or Higher, Coldness, Increased Pain, Numbness or Tingling, Change in Color, Inability to urinate, Inability to have a bowel movement, Shortness of breath, Dizziness, Fainting spells, Swelling in the ankles, Chest pain, Prolonged hiccupping, Increased palpitations (irregular heartbeat), Calf discomfort and Uncontrolled pain Follow Up Care Test Results: Test results from this visit will be discussed in further detail at your follow-up appointment, if applicable. Discharge Plan Admission Admit Date/Time: 06/15/21 01:16 Primary Reason for Your Visit: Acute laryngeal edema Attending Provider: Compa Jimenes Primary Care Provider: Guero Cain Consulting Providers: Coy Dey Instructions Additional Instructions / Restrictions: Patient completed clindamycin and levofloxacin 7 days course 2 days prior to admission. Patient has prednisone at home advised if she feels laryngeal/throat swelling can take prednisone 10 mg daily as advised by her PCP. Discharge Orders/Prescriptions Prescriptions: New pantoprazole [Protonix] [address] for susp in packet 40 mg PO DAILY Qty: 30 RF: 0 Continued atorvastatin 20 mg tablet 20 mg PO DAILY RF: 0 prednisone 5 mg tablet 5 mg PO DAILY RF: 0 Humira(CF) Pen 40 mg/0.4 mL pen injector kit 40 mg SUBCUT QWEEK RF: 0 Changed indapamide 1.25 mg tablet 1.25 mg PO DAILY Qty: 0 RF: 0 Held losartan 50 mg tablet 50 mg PO DAILY RF: 0 Hold Instructions: Hold for 3 days and then talk to PCP before resumption. Do not increase the dose. Discontinued levofloxacin 750 mg tablet 750 mg PO DAILY Qty: 7 RF: 0 clindamycin HCl 300 mg capsule 300 mg PO Q6H Qty: 28 RF: 0 Referrals / Follow Up: Coy Dey MD [STAFF PHYSICIAN] - Within 2 Weeks (For laryngeal edema.) Guero Cain MD [Primary Care Provider] - In 1 Week (For throat swelling.) Disposition Disposition (needs filled in before D/C Order can be placed): Home, Self Care
--- NOTE | 2021-06-15 14:49 | PCM.DC.SUM ---
Providers Date of Admission: 06/15/21 Date of Discharge: 06/15/21 Primary Care Physician: Dr. Guero Cain MD Consultations 06/15/21 06:00 Consult: ENT Routine Consulting Provider: Coy Dey Reason for Consult: Recent admit atypical supraglottitis, readmit dysphagia, mucosal edema. EMERGENT Consult: No MD Notified: Yes Date Notified: 06/15/21 Time Notified: 07:32 Method of Notification: spoke on phone Reason For Visit: DYSPHAGIA, PHARYNGEAL MUCOSAL EDEMA Diagnosis Discharge Diagnosis (1) Laryngeal edema: Status: Acute Code(s): J38.4 - Edema of larynx Medications at Discharge Home Medications Humira(CF) Pen 40 mg SUBCUT QWEEK 06/06/21 atorvastatin 20 mg PO DAILY 06/06/21 losartan 50 mg PO DAILY 06/06/21 prednisone 5 mg PO DAILY 06/06/21 indapamide 1.25 mg PO DAILY #0 tab 06/15/21 pantoprazole [Protonix] 40 mg PO DAILY #30 ea 06/15/21 Hospital Course Summary of Care Provided Hospital Course: Patient was admitted with throat swelling, difficulty swallowing saliva secretions and food. She self medicated 2 tablets of 10 mg prednisone at home. 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 She has history of rheumatoid arthritis. CT soft tissue neck showed thickened appearance of laryngeal soft tissue with possible minimal pharyngeal mucosa at the level of the pyriform sinuses, posterior wall of hypopharynx. Patient denies shortness of breath, dyspnea or labored breathing. No stridor. Patient had similar presentation with throat swelling when she came to ER on 06/06 was discharged after Solu-Medrol dose on antibiotic clindamycin and Levaquin which she completed 2 days prior to admission today on 06/15/2020 Please see H&P for details. Patient had recent 2 visits for severe recurrent globus sensation. Patient was further evaluated by ENT Dr. Coy Mcclure she had laryngoscopy which showed slight amount of right posterior aryepiglottic fold, supraglottic edema. Normal cord motion, voice normal tolerating secretions. Impression: Acute laryngeal edema. Patient was treated with dexamethasone 10 mg IV at time of admission and then 4 mg every 12. Exact etiology unclear possible losartan/GERD etiology. Follow-up in ENT clinic [address] Coy Burt Patient did not had fever or chills, leukocytosis at time of admission. CBC in the morning shows 11.4 temporally due to steroid effect. Patient did not had fever in the last 7 days and she recently completed 7 days of Levaquin and clindamycin at home. Therefore with increased risk of antibiotic adverse effect C. difficile infection, further antibiotic not recommended. I talked to the patient, she understands and agrees with the plan. Patient is discharged on 30-day supply of Protonix for possible GERD as a cause for laryngeal edema. Patient has prednisone and advised to take 10 mg when she feels throat swelling. Discharge medication reconciliation done. Discharge follow-up instructions completed. Discharge process discussed with the patient and all questions were answered to patient's satisfaction. Total time spent, exact 35 minutes on discharge meds reconciliation, examination, coordination of care with nurses and ancillary staff, review of imaging and blood test and discussion with the patient on follow-up instructions Physical Exam Narrative Seen and examined. Patient does not have problem in swallowing oral secretions and food. Examined by ENT surgeon with laryngoscope. Patient feels comfortable going home. Physical exam General: Alert, Oriented x3, Cooperative HEENT: Atraumatic, PERRLA, EOMI, Normocephalic Oral/pharynx: No Gingival or Mucosal Lesions/ Ulcerations. No appreciable swelling of oral mucosa or posterior part of the tongue/tonsillar folds. Neck: Supple, No JVD, Negative Carotid Bruits Lungs: Air entry diminished in bilateral lung bases. No crepitation/rhonchi Cardiovascular: Regular rate, Regular Rhythm, Normal S1, Normal S2, No murmurs Abdomen: Bowel Sounds Present, Soft, Non Tender, Non-Distended : No renal angle tenderness. No suprapubic tenderness. Extremities: No edema, Capillary Refill Less than 3 Seconds Skin: No rashes, No breakdown Musculoskeletal: No Tenderness to Palpation of Joints or Extremities Neurological: Cranial nerves II-XII grossly intact, DTR 2+/4 and Symmetrical, Neuro grossly intact Psych/Mental Status: Normal Affect, Appropriate. Weight / BMI Weight Weight: 154 lb 8.705 oz Body Mass Index (BMI) 26.5 ABG / Lab / Microbiology Data Result Diagrams: 06/15/21 03:48 06/15/21 03:48 Laboratory: Laboratory Results - last 24 hr 06/14/21 23:42: WBC 8.6, RBC 4.08 L, Hgb 13.4, Hct 37.5, MCV 91.9, MCH 32.8 H, MCHC 35.7, RDW Std Deviation 38.9, RDW Coeff of Michael 11.5 L, Plt Count 345, MPV 9.3, Immature Gran % (Auto) 0.700, Neut % (Auto) 62.6, Lymph % (Auto) 23.6, Citrus % (Auto) 4.1, Eos % (Auto) 8.8 H, Baso % (Auto) 0.2, Absolute Neuts (auto) 5.4, Absolute Lymphs (auto) 2.03, Nucleated RBC % 0 06/14/21 23:42: Sodium 136, Potassium 3.5, Chloride 104, Carbon Dioxide 27.0, Anion Gap 5, BUN 15, Creatinine 1.02, Estim Creat Clear Calc 48.12, Est GFR (MDRD) Af Amer 70, Est GFR (MDRD) Non-Af 58 L, BUN/Creatinine Ratio 14.7, Glucose 126 H, Calcium 8.4 L 06/15/21 02:00: Procalcitonin 0.16 H 06/15/21 03:48: WBC 11.4 H, RBC 4.12 L, Hgb 13.1, Hct 37.8, MCV 91.7, MCH 31.8, MCHC 34.7, RDW Std Deviation 39.3, RDW Coeff of Michael 11.6, Plt Count 351, MPV 10.1, Immature Gran % (Auto) 0.500, Neut % (Auto) 85.8 H, Lymph % (Auto) 8.7 L, Citrus % (Auto) 1.7, Eos % (Auto) 3.2, Baso % (Auto) 0.1, Absolute Neuts (auto) 9.8 H, Absolute Lymphs (auto) 0.99, Nucleated RBC % 0 06/15/21 03:48: Sodium 137, Potassium 3.9, Chloride 104, Carbon Dioxide 25.0, Anion Gap 8, BUN 13, Creatinine 0.82, Estim Creat Clear Calc 59.85, Est GFR (MDRD) Af Amer 90, Est GFR (MDRD) Non-Af 74, BUN/Creatinine Ratio 15.8, Glucose 125 H, Calcium 8.8, Total Bilirubin 0.60, AST 16, ALT 20, Alkaline Phosphatase 71, Total Protein 6.4, Albumin 3.2, Globulin 3.2, Albumin/Globulin Ratio 1.0, TSH 0.57, Free T4 1.24 Radiography Diagnostic Testing: Radiology Impression Soft Tissue Neck CT 06/15/21 23:31 IMPRESSION: There is a indistinct mildly thickened appearance of the laryngeal soft tissues with what appears to be possible edema of the pharyngeal mucosa especially at the level of the pyriform sinuses. In correlation with any prior history of tracheostomy or injury. There is a hypertrophied appearance of the posterior wall of the hypopharynx. Consider possible laryngeal edema laryngitis. Recommend direct visualization. Potentially MRI may be helpful for further evaluation. There is no visualized thickening of the epiglottis to suggest epiglottitis. No visualized focal enhancing mass. Small nodule periphery right thyroid measuring 9.3 mm could consider follow-up ultrasound. Electronically Signed: Annel Finnegan MD at 0:55 EST Reading Location ID and State: [facility] / [place] Tel , Service support , D/C Instructions Discharge Diet: Soft diet (For next 3 days and then regular diet) Call your doctor if you observe: Fever of 101 or Higher, Coldness, Increased Pain, Numbness or Tingling, Change in Color, Inability to urinate, Inability to have a bowel movement, Shortness of breath, Dizziness, Fainting spells, Swelling in the ankles, Chest pain, Prolonged hiccupping, Increased palpitations (irregular heartbeat), Calf discomfort and Uncontrolled pain Meaningful Use Info Meaningful Use Diagnoses (Choose all that apply): None applicable Discharge Plan Admission Admit Date/Time: 06/15/21 01:16 Primary Reason for Your Visit: Acute laryngeal edema Attending Provider: Compa Jimenes Primary Care Provider: Guero Cain Consulting Providers: Coy Dey Instructions Additional Instructions / Restrictions: Patient completed clindamycin and levofloxacin 7 days course 2 days prior to admission. Patient has prednisone at home advised if she feels laryngeal/throat swelling can take prednisone 10 mg daily as advised by her PCP. Discharge Orders/Prescriptions Prescriptions: New pantoprazole [Protonix] [address] for susp in packet 40 mg PO DAILY Qty: 30 RF: 0 Continued atorvastatin 20 mg tablet 20 mg PO DAILY RF: 0 prednisone 5 mg tablet 5 mg PO DAILY RF: 0 Humira(CF) Pen 40 mg/0.4 mL pen injector kit 40 mg SUBCUT QWEEK RF: 0 Changed indapamide 1.25 mg tablet 1.25 mg PO DAILY Qty: 0 RF: 0 Held losartan 50 mg tablet 50 mg PO DAILY RF: 0 Hold Instructions: Hold for 3 days and then talk to PCP before resumption. Do not increase the dose. Discontinued levofloxacin 750 mg tablet 750 mg PO DAILY Qty: 7 RF: 0 clindamycin HCl 300 mg capsule 300 mg PO Q6H Qty: 28 RF: 0 Referrals / Follow Up: Coy Dey MD [STAFF PHYSICIAN] - Within 2 Weeks (For laryngeal edema.) Guero Cain MD [Primary Care Provider] - In 1 Week (For throat swelling.) Disposition Disposition (needs filled in before D/C Order can be placed): Home, Self Care Charges/Coding Visit Charges OBSV E&M: 64785 Observation care discharge
--- NOTE | 2021-06-15 23:31 | CT_ITS ---
STUDY: CT SOFT TISSUE NECK WITH CONTRAST REASON FOR EXAM: Female, 65 years old. epiglottitis, dysphagia RADIATION DOSAGE (If Supplied By Facility): CTDIvol = ( 19.55 ) mGy, DLP = ( 634.92 ) mGycm TECHNIQUE: The patient was scanned in a multi-detector CT scanner. High resolution transaxial imaging was performed following intravenous administration of IV 75mL Isovue-370. Sagittal and coronal images were reconstructed. Individualized dose optimization techniques were used for this CT. COMPARISON: June 06, 2021 FINDINGS: Normal bilateral parotid glands. Normal bilateral heritage consultant spaces. Normal bilateral parapharyngeal spaces. Normal bilateral carotid spaces. Normal bilateral sublingual and submandibular glands and spaces. Normal visualized nasopharynx. Normal retropharyngeal space. Normal perivertebral space. Normal visualized bilateral faucial tonsils. The visualized tongue, tongue base and oropharynx are normal. The visualized cervical lymph nodes (levels I-) are within normal size limits, and maintain normal morphology. There is no demonstrated solid or cystic mass lesion. There is no abnormal contrast enhancement. The epiglottis is of normal width without evidence of inflammation. There is a somewhat diminutive appearance of the vallecula. The air epiglottic folds are not well visualized on this study and the pyriform sinuses are diminutive. There is a thick walled appearance of the posterior aspect of the larynx and a mildly irregular fat at the level of the periglottic spaces false cords. There are glottic folds are much less distinct than normal. The true cords appear normal.. Normal subglottic trachea. There is a focus of low attenuation within the periphery of the right thyroid that measures 9.3 mm. Otherwise the thyroid gland appears homogeneous. There is a mildly thickened appearance of the esophagus. Normal visualized pulmonary apices. Normal visualized paranasal sinuses. Normal visualized cervical spine. CT/Soft Tissue Neck WITH Contrast IMPRESSION: There is a indistinct mildly thickened appearance of the laryngeal soft tissues with what appears to be possible edema of the pharyngeal mucosa especially at the level of the pyriform sinuses. In correlation with any prior history of tracheostomy or injury. There is a hypertrophied appearance of the posterior wall of the hypopharynx. Consider possible laryngeal edema laryngitis. Recommend direct visualization. Potentially MRI may be helpful for further evaluation. There is no visualized thickening of the epiglottis to suggest epiglottitis. No visualized focal enhancing mass. Small nodule periphery right thyroid measuring 9.3 mm could consider follow-up ultrasound. Electronically Signed: Annel Finnegan MD at 0:55 EST ,
== END 2021-06-15 15:15 | disposition home or self-care (01) ==
LOC: ED 06-15 01:13 → MS3 06-15 01:29
PROVIDERS: Admitting Provider Family Medicine; Emergency Provider Emergency Medicine; PCP Family Medicine; Visit Provider Internal Medicine
DX: J38.4 Edema of larynx (principal); M06.9 Rheumatoid arthritis, unspecified; I10 Essential (primary) hypertension; E04.1 Nontoxic single thyroid nodule; E78.5 Hyperlipidemia, unspecified; Z87.891 Personal history of nicotine dependence; Z79.899 Other long term (current) drug therapy
CPT/HCPCS: 31575; 31525; 36415; 70491; 80048; 80053; 84145; 84439; 84443; 85025; 96372; 96374; 96376; 99218; 99284; Q9967; A4216; G0378

== ENCOUNTER → 2021-12-21 | Outpatient (CLI) | payer MEDICARE, OTHER, SELFPAY ==
[2021-12-21 12:42] LABS: Absolute Lymphocyte Count 1.64 X10^3/uL (0.83-4.51); Absolute Neutrophil Count 3.7 X10^3/uL (2.0-7.7); Basophil# 0.01 X10^3/uL; Basophil% 0.1 % (0-1); Eosinophil# 1.25 X10^3/uL; Eosinophils% 17.9 % (0-5); Hematocrit 37.6 % (37-47); Hemoglobin 13.2 g/dL (12.0-15.0); Lymphocyte # 1.64 X10^3/ul (0.83-4.51); Lymphocyte % 23.4 % (19-41); Mean Corp Hgb Conc 35.1 g/dL (32-36); Mean Corpuscular Hgb 33.1 pg (27.0-32.0); Mean Corpuscular Volume 94.2 fL (81-99); Mean Platelet Vol. 10.2 fl (6.2-12.0); Monocyte# 0.34 X10^3/uL; Monocyte% 4.9 % (0-10); NRBC Flagged by Analyzer 0 % (0-5); Neutrophil # 3.74 X10^3/uL (2.7-7.7); Neutrophil % 53.4 % (47-70); Platelet Count 349 K/mm3 (150-450); RBC Distribution Width CV 11.9 % (11.6-14.6); RBC Distribution Width SD 40.7 fl (35.1-43.9); Red Blood Count 3.99 M/mm3 (4.2-5.4)
[2021-12-21 13:21] LABS: AST(SGOT) 20 U/L (15-37); Alanine Aminotransfer ALT/SGPT 32 U/L (13-56); Albumin, Serum 3.3 g/dL (3.2-5.0); Alkaline Phosphatase 74 U/L (45-117); Bilirubin, Direct 0.15 mg/dL (0.00-0.30); Protein, Total 6.3 g/dL (6.4-8.2)
== END | disposition home or self-care (01) ==
PROVIDERS: PCP Family Medicine; Referring Provider Internal Medicine Rheumatology; Visit Provider Internal Medicine Rheumatology
DX: M05.79 Rheumatoid arthritis with rheumatoid factor of multiple sites without organ or systems involvement (principal); Z79.899 Other long term (current) drug therapy
CPT/HCPCS: 36415; 80076; 85025

== ENCOUNTER → 2022-01-17 | Outpatient (CLI) | payer MEDICARE, OTHER, SELFPAY | END | disposition home or self-care (01) | LOC: MRI 13:17 | PROVIDERS: PCP Family Medicine; Referring Provider Internal Medicine Rheumatology; Visit Provider Internal Medicine Rheumatology | DX: R22.31 Localized swelling, mass and lump, right upper limb (principal) ==

== ENCOUNTER → 2022-02-03 | Outpatient (CLI) | payer MEDICARE, OTHER, SELFPAY ==
[2022-02-03 09:54] LABS: Absolute Lymphocyte Count 1.71 X10^3/uL (0.83-4.51); Absolute Neutrophil Count 2.9 X10^3/uL (2.0-7.7); Basophil# 0.02 X10^3/uL; Basophil% 0.4 % (0-1); Eosinophils% 1.8 % (0-5); Hematocrit 39.7 % (37-47); Hemoglobin 13.8 g/dL (12.0-15.0); Lymphocyte # 1.71 X10^3/ul (0.83-4.51); Mean Corp Hgb Conc 34.8 g/dL (32-36); Mean Corpuscular Hgb 32.9 pg (27.0-32.0); Mean Corpuscular Volume 94.5 fL (81-99); Mean Platelet Vol. 9.7 fl (6.2-12.0); Monocyte# 0.74 X10^3/uL; Monocyte% 13.4 % (0-10); NRBC Flagged by Analyzer 0 % (0-5); Neutrophil # 2.93 X10^3/uL (2.7-7.7); Neutrophil % 53.2 % (47-70); Platelet Count 327 K/mm3 (150-450); RBC Distribution Width CV 12.4 % (11.6-14.6); RBC Distribution Width SD 43.1 fl (35.1-43.9); White Blood Count 5.5 K/mm3 (4.4-11.0)
[2022-02-03 10:48] LABS: AST(SGOT) 17 U/L (15-37); Alanine Aminotransfer ALT/SGPT 26 U/L (13-56); Albumin, Serum 3.6 g/dL (3.2-5.0); Alkaline Phosphatase 81 U/L (45-117); Anion Gap 7 (5-15); BUN 11 mg/dL (7-18); BUN/Creat Ratio 16.2 RATIO (10-20); Bilirubin, Direct 0.14 mg/dL (0.00-0.30); Calcium,Total 9.2 mg/dL (8.5-10.1); Chloride 105 mmol/L (98-107); Cholesterol 214 mg/dL (200); Creatinine, Serum 0.68 mg/dL (0.55-1.02); EST Glomerular Filtration Rate 92 mL/min (>60); Est Glom Filt Rate - Afr Amer 112 mL/min (>60); Globulin 3.1 g/dL (2.2-4.2); Glucose 105 mg/dL (74-106); High Density Lipoprotein 53 mg/dL; Potassium 3.8 mmol/L (3.5-5.1); Protein, Total 6.7 g/dL (6.4-8.2); Sodium Level 140 mmol/L (136-145); Triglycerides 137 mg/dL; Very Low Density Lipoprotein 27 mg/dL (5-40)
== END | disposition home or self-care (01) ==
LOC: MFPLAB 09:29
PROVIDERS: PCP Family Medicine; Referring Provider Family Medicine; Visit Provider Family Medicine
DX: M05.79 Rheumatoid arthritis with rheumatoid factor of multiple sites without organ or systems involvement (principal); I10 Essential (primary) hypertension; E78.00 Pure hypercholesterolemia, unspecified; Z79.899 Other long term (current) drug therapy
CPT/HCPCS: 36415; 80048; 80061; 80076; 85025

== ENCOUNTER → 2022-07-18 | Outpatient (CLI) | payer MEDICARE, OTHER, SELFPAY ==
[2022-07-18 15:04] LABS: Absolute Lymphocyte Count 2.52 X10^3/uL (0.83-4.51); Absolute Neutrophil Count 9.5 X10^3/uL (2.0-7.7); Basophil# 0.04 X10^3/uL; Basophil% 0.3 % (0-1); Eosinophil# 0.01 X10^3/uL; Eosinophils% 0.1 % (0-5); Hematocrit 41.9 % (37-47); Lymphocyte # 2.52 X10^3/ul (0.83-4.51); Lymphocyte % 19.6 % (19-41); Mean Corp Hgb Conc 33.4 g/dL (32-36); Mean Corpuscular Volume 95.7 fL (81-99); Monocyte% 5.4 % (0-10); NRBC Flagged by Analyzer 0 % (0-5); Neutrophil # 9.54 X10^3/uL (2.7-7.7); Neutrophil % 74.1 % (47-70); Platelet Count 459 K/mm3 (150-450); RBC Distribution Width CV 11.5 % (11.6-14.6); RBC Distribution Width SD 40.5 fl (35.1-43.9); Red Blood Count 4.38 M/mm3 (4.2-5.4); White Blood Count 12.9 K/mm3 (4.4-11.0)
[2022-07-18 15:45] LABS: ALB/GLOB Ratio 1.1 RATIO (0.9-2.4); AST(SGOT) 13 U/L (15-37); Alanine Aminotransfer ALT/SGPT 24 U/L (13-56); Albumin, Serum 3.9 g/dL (3.2-5.0); Alkaline Phosphatase 92 U/L (45-117); Anion Gap 9 (5-15); BUN 19 mg/dL (7-18); BUN/Creat Ratio 24.6 RATIO (10-20); CRP < 2.90 mg/L (0.0-3.0); Calcium,Total 9.7 mg/dL (8.5-10.1); Chloride 101 mmol/L (98-107); Cholesterol 242 mg/dL (200); Creatinine, Serum 0.77 mg/dL (0.55-1.02); EST Glomerular Filtration Rate 80 mL/min (>60); Est Glom Filt Rate - Afr Amer 96 mL/min (>60); Globulin 3.6 g/dL (2.2-4.2); Glucose 86 mg/dL (74-106); High Density Lipoprotein 68 mg/dL; Potassium 3.7 mmol/L (3.5-5.1); Protein, Total 7.5 g/dL (6.4-8.2); Sodium Level 138 mmol/L (136-145); Triglycerides 156 mg/dL; Very Low Density Lipoprotein 31 mg/dL (5-40)
[2022-07-18 16:10] LABS: Microalbumin,Random Urine 29.6 mg/L (NO RANGE EST.); Microalbumin:Creatinine Ratio 33.4 mg/g CRE (<30 mg/g CRE)
== END | disposition home or self-care (01) ==
LOC: MFPLAB 11:32
PROVIDERS: PCP Family Medicine; Visit Provider Family Medicine
DX: Z00.00 Encounter for general adult medical examination without abnormal findings (principal); M06.9 Rheumatoid arthritis, unspecified; E78.00 Pure hypercholesterolemia, unspecified; I10 Essential (primary) hypertension
CPT/HCPCS: 36415; 80053; 80061; 82043; 82570; 85025; 86140; 86431

== ENCOUNTER → 2023-04-26 | Outpatient (CLI) | payer MEDICARE, OTHER, SELFPAY ==
[2023-04-26 10:30] LABS: Absolute Neutrophil Count 6.6 X10^3/uL (2.0-7.7); Basophil# 0.05 X10^3/uL; Basophil% 0.5 % (0-1); Eosinophil# 0.07 X10^3/uL; Eosinophils% 0.7 % (0-5); Hematocrit 40.2 % (37-47); Hemoglobin 13.5 g/dL (12.0-15.0); Lymphocyte % 28.3 % (19-41); Mean Corp Hgb Conc 33.6 g/dL (32-36); Mean Corpuscular Hgb 31.7 pg (27.0-32.0); Mean Corpuscular Volume 94.4 fL (81-99); Mean Platelet Vol. 9.6 fl (6.2-12.0); Monocyte# 0.87 X10^3/uL; Monocyte% 8.2 % (0-10); NRBC Flagged by Analyzer 0 % (0-5); Neutrophil # 6.57 X10^3/uL (2.7-7.7); Neutrophil % 61.8 % (47-70); Platelet Count 476 K/mm3 (150-450); RBC Distribution Width CV 11.5 % (11.6-14.6); RBC Distribution Width SD 39.2 fl (35.1-43.9); Red Blood Count 4.26 M/mm3 (4.2-5.4); White Blood Count 10.6 K/mm3 (4.4-11.0)
[2023-04-26 11:05] LABS: AST(SGOT) 18 U/L (15-37); Alanine Aminotransfer ALT/SGPT 32 U/L (13-56); Albumin, Serum 3.3 g/dL (3.2-5.0); Alkaline Phosphatase 84 U/L (45-117); Anion Gap 6 (5-15); BUN 14 mg/dL (7-18); BUN/Creat Ratio 22.2 RATIO (10-20); Calcium,Total 8.5 mg/dL (8.5-10.1); Chloride 104 mmol/L (98-107); Cholesterol 190 mg/dL (200); Creatinine, Serum 0.63 mg/dL (0.55-1.02); EST Glomerular Filtration Rate 100 mL/min (>60); Est Glom Filt Rate - Afr Amer 121 mL/min (>60); Globulin 3.4 g/dL (2.2-4.2); Glucose 94 mg/dL (74-106); High Density Lipoprotein 53 mg/dL; Potassium 3.8 mmol/L (3.5-5.1); Protein, Total 6.7 g/dL (6.4-8.2); Sodium Level 137 mmol/L (136-145); Triglycerides 140 mg/dL; Very Low Density Lipoprotein 28 mg/dL (5-40)
[2023-04-26 11:15] LABS: Microalbumin,Random Urine 5.2 mg/L (NO RANGE EST.); Microalbumin:Creatinine Ratio 14.7 mg/g CRE (<30 mg/g CRE)
== END | disposition home or self-care (01) ==
LOC: MTLAB 09:06
PROVIDERS: PCP Family Medicine; Referring Provider Family Medicine; Visit Provider Family Medicine
DX: M06.9 Rheumatoid arthritis, unspecified (principal); I10 Essential (primary) hypertension; E78.00 Pure hypercholesterolemia, unspecified
CPT/HCPCS: 36415; 80053; 80061; 82043; 82570; 85025

== ENCOUNTER 2024-02-09 19:01 | Emergency (ER) | payer MEDICARE, OTHER, SELFPAY ==
[2024-02-09 19:02] VITALS: BP 193/96; PULSE 87; RESP 16; TEMP 36; O2SAT 98; BMI 26.6
--- NOTE | 2024-02-09 19:18 | EDS_ITS ---
HPI History of Present Illness Chief Complaint: Allergic Reaction Detail of Chief Complaint: Allergic reaction to bee sting yesterday Onset/Context/Timing Onset: Yesterday Context: Sudden Onset Timing: Continuous Quality: Redness and itching distal anterior right leg Location: Distal anterior right leg Current Severity: Mild Maximum Severity: Mild Worsened by: Itching Relieved by: Nothing Associated Symptoms Associated Symptoms: No complaints of facial swelling, tongue swelling or throat swelling. No c Narrative Narrative: Patient is a 68-year-old woman who presents because of local allergic reaction to her anterior right leg. Area of involvement is 4 x 6 cm. There is no induration, warmth, lymphangitis or popliteal lymphadenopathy. Patient denies shortness of breath, chest pain, orthostatic symptoms, nausea or vomiting. Patient never had a systemic reaction to bee sting. Prior similar symptoms: No Recent Illness/Hospitalization: No PFSH PFSH Medical History Overweight Former tobacco use HLD (hyperlipidemia) HTN (hypertension) Rheumatoid arthritis Home Medications ?Medication ?Instructions ?Recorded ?Last Taken ?Type adalimumab 40 mg/0.4 mL 40 mg subcut QWEEK 06/06/21 Unknown History subcutaneous pen kit (Humira(CF) Pen) atorvastatin 20 mg tablet 20 mg PO DAILY 06/06/21 Unknown History prednisone 5 mg tablet 5 mg PO DAILY 06/06/21 Unknown History indapamide 1.25 mg tablet 1.25 mg PO DAILY #0 tabs 06/15/21 Unknown Rx pantoprazole 40 mg granules 40 mg PO DAILY #30 ea 06/15/21 Unknown Rx delayed-release for susp in packet (Protonix) buspirone 5 mg tablet 5 mg PO BID 10/04/23 Unknown History azithromycin 250 mg tablet See Rx Instructions PO .COMPLEX #6 10/08/23 Unknown Rx tabs famotidine 20 mg tablet (Pepcid) 20 mg PO BID #7 tabs 02/09/24 Unknown Rx Allergy/AdvReac Type Severity Reaction Status Date / Time losartan Allergy Mild Rash Verified 02/09/24 19:02 Sulfa (Sulfonamide Allergy Rash Verified 02/09/24 19:02 Antibiotics) morphine AdvReac Other Verified 02/09/24 19:02 Family History Mother Heart disease Hypertension HLD (hyperlipidemia) Father Myasthenia gravis Surgical History H/O section History of bilateral carpal tunnel release Hx of elbow surgery Social History household members: spouse Smoking Status: Former smoker how long ago did patient quit smoking: Quit 29 years ago, smoked 3-4 cig/daily since age 23 until quit. alcohol intake: current alcohol intake frequency: 0-2 drinks per day Alcohol type: wine substance use type: does not use ROS ROS ED Cardiovascular Cardiovascular: Reports other Details: No orthostatic symptoms. ; Denies chest pain or palpitations Respiratory/Chest Respiratory/Chest: Denies cough, dyspnea or dyspnea on exertion Gastrointestinal Gastrointestinal: Denies diarrhea, nausea or vomiting Integumentary Reports rash Allergic/Immunologic Allergic/Immunologic ED: Denies mouth swelling, tongue swelling or urticaria EXAM Physical Exam Const Vital Signs: 02/09/24 19:02 Temperature 96.8 F L Temperature Source Temporal Pulse Rate 87 Respiratory Rate 16 Blood Pressure 193/96 H Blood Pressure Mean 128 Pulse Ox 98 Oxygen Delivery Method Room Air Positive well nourished and well developed General Appearance ED: well developed and NAD; Negative for pallor HEENT HEENT Narrative: No evidence of angioedema Resp normal respiratory effort and clear to auscultation bilaterally Cardio regular rate and regular rhythm Skin No no rashes or lesions noted, No no wounds and skin turgor normal General Skin Exam: elasticity normal; Negative for jaundice or pallor MDM MDM MDM Narrative Medical decision making narrative: Site of hymenoptera envenomation noted. There is no evidence of infection i.e. warmth, induration lymphangitis or lymphadenopathy. Patient does have evidence of a local reaction. He has a blanching erythematous rash which is pruritic. Treatment is Pepcid. Discharge Plan Triage Chief Complaint: Allergic Reaction ED Provider: Cristian Head Dx/Rx/DC Orders Clinical Impression: Pruritic erythematous rash, Bee sting reaction Instructions: ED Allergic Reaction Local Other Prescriptions: New famotidine [Pepcid] 20 mg tablet 20 mg PO BID Qty: 7 0RF No Action buspirone 5 mg tablet 5 mg PO BID atorvastatin 20 mg tablet 20 mg PO DAILY prednisone 5 mg tablet 5 mg PO DAILY Humira(CF) Pen 40 mg/0.4 mL pen injector kit 40 mg SUBCUT QWEEK pantoprazole [Protonix] [address] for susp in packet 40 mg PO DAILY Qty: 30 0RF indapamide 1.25 mg tablet 1.25 mg PO DAILY Qty: 0 0RF Patient Comments: take 1/2 to 1 tablet by mouth daily if needed WHEN TAKING STEROID... (REFER TO PRESCRIPTION NOTES). azithromycin 250 mg tablet See Rx Instructions PO .COMPLEX Qty: 6 0RF Rx Instructions: For 250 mg dose pack: take 500 mg today (day 1), then 250 mg for 4 days (days 2-5) PO Primary Care Provider: Guero Cain Referrals: Guero Cain MD [Primary Care Provider] - As Needed Print Language: Occitan Disposition Disposition: Home, Self Care
[2024-02-09] MEDS: Famotidine 20 MG Tablet PO (19:23)
[2024-02-09 19:28] VITALS: BP 160/86; PULSE 77; RESP 16; TEMP 36.5; O2SAT 97
== END 2024-02-09 19:30 | disposition home or self-care (01) ==
LOC: ED 19:24
PROVIDERS: Emergency Provider Emergency Medicine; PCP Family Medicine; Visit Provider Emergency Medicine
DX: T63.441A Toxic effect of venom of bees, accidental (unintentional), initial encounter (principal); M06.9 Rheumatoid arthritis, unspecified; L29.89 Other pruritus; I10 Essential (primary) hypertension; E78.5 Hyperlipidemia, unspecified; Z79.52 Long term (current) use of systemic steroids; Z79.899 Other long term (current) drug therapy; Z87.891 Personal history of nicotine dependence
CPT/HCPCS: 99282

== ENCOUNTER → 2024-03-11 | Outpatient (CLI) | payer MEDICARE, OTHER, SELFPAY ==
[2024-03-11 12:29] LABS: Cholesterol 292 mg/dL (200); High Density Lipoprotein 69 mg/dL; Triglycerides 161 mg/dL; Very Low Density Lipoprotein 32 mg/dL (5-40)
[2024-03-11 12:47] LABS: Microalbumin,Random Urine 8.2 mg/L (NO RANGE EST.); Microalbumin:Creatinine Ratio 14.9 mg/g CRE (<30 mg/g CRE)
== END | disposition home or self-care (01) ==
LOC: MFPLAB 10:16
PROVIDERS: PCP Family Medicine; Visit Provider Family Medicine
DX: I10 Essential (primary) hypertension (principal); E78.5 Hyperlipidemia, unspecified
CPT/HCPCS: 36415; 80061; 82043; 82570

== ENCOUNTER → 2025-03-18 | Outpatient (CLI) | payer MEDICARE, OTHER, SELFPAY ==
[2025-03-18 12:24] LABS: Hematocrit 39.6 % (37-47); Hemoglobin 13.8 g/dL (12.0-15.0); Immature Granulocytes Count 0.020 X10^3/uL (0.0-0.0); Mean Corp Hgb Conc 34.8 g/dL (32-36); Mean Corpuscular Volume 91.5 fL (81-99); Mean Platelet Vol. 9.8 fl (6.2-12.0); NRBC Flagged by Analyzer 0 % (0-5); Platelet Count 380 K/mm3 (150-450); RBC Distribution Width CV 11.4 % (11.6-14.6); RBC Distribution Width SD 38.3 fl (35.1-43.9); Red Blood Count 4.33 M/mm3 (4.2-5.4); White Blood Count 6.7 K/mm3 (4.4-11.0)
[2025-03-18 12:54] LABS: Creatinine, Urine (random) 110.00 mg/dL (28.00-217.00); Microalbumin,Random Urine < 12.0 mg/L (<20 mg/L)
[2025-03-18 13:00] LABS: AST(SGOT) 24 U/L (<=31); Alanine Aminotransfer ALT/SGPT 27 U/L (<=34); Albumin, Serum 4.6 g/dL (3.4-4.8); Alkaline Phosphatase 111 U/L (35-104); Anion Gap 12 (5-15); BUN 16 mg/dL (4-19); BUN/Creat Ratio 21.8 RATIO (10-20); Calcium,Total 9.7 mg/dL (7.6-11.0); Carbon Dioxide 25.6 mmol/L (21.0-32.0); Chloride 103 mmol/L (98-108); Cholesterol 222 mg/dL (<=200); Globulin 2.6 g/dL (2.2-4.2); Glucose 104 mg/dL (70-99); Low Density Lipoprotein Calc. 139 mg/dL; Potassium 4.7 mmol/L (3.3-5.1); Triglycerides 110 mg/dL; Very Low Density Lipoprotein 22 mg/dL (5-40); cholesterol:hdl ratio screen 3.52
== END | disposition home or self-care (01) ==
LOC: MFPLAB 10:00
PROVIDERS: PCP Family Medicine; Visit Provider Family Medicine
DX: I10 Essential (primary) hypertension (principal); M06.9 Rheumatoid arthritis, unspecified; E78.5 Hyperlipidemia, unspecified
CPT/HCPCS: 36415; 80053; 80061; 82043; 82570; 84443; 85025